=== PATIENT | male | born 1965 | race Asian ===

== ENCOUNTER 2025-08-15 07:00 | Outpatient (REF) | payer OTHER, SELFPAY ==
--- OUTSIDE RECORDS SUMMARY | 2025-08-15 07:04 | XMS_ITS | Encounter Summary ---
Author Organization [employer] Address [address] [place] [address] 7 [place] [address] Care Team Providers Care Chief Accounting Officer Name Role Phone Unavailable Primary Care Provider Unavailabl e Encounter Details Date Type Department Care Team (Latest Contact Info) Description 02/02/2019 Abstract [facility] CONVERSIONS Dental, Provider, DDS Social History Tobacco Use Types Packs/Day Years Used Date Smoking Tobacco: Never Assessed Sex and Gender Information Value Date Recorded Sex Assigned at Male 08/10/2022 10:24 AM EDT Legal Sex Male 10:24 AM EDT Gender Identity Male 08/10/2022 10:24 AM EDT Sexual Orientation Straight 08/10/2022 10 :24 AM EDT documented as of this encounter Plan of Treatment Not on file documented as of this encounter Visit Diagnoses Not on filedocumented in this encounter
--- OUTSIDE RECORDS SUMMARY | 2025-08-15 07:04 | XMS_ITS | Encounter Summary ---
Author Organization [facility] Address [address] [facility] [address] [place] [address] Phone Care Team Providers Care Rice Drier Name Role Phone German Apple CNP Unavailable Goran Guillen MD Unavailable [phone] German Apple CNP Primary Care Provider [phone] Pretty Hernandez PA-C Unavailable Sebastien Cho MD Unavailable [phone] Encounter Details Date Type Department Care Team (Latest Contact Info) Description 11/30/2019 Transcribe Orders [facility] [place] [address] [place] [address] Lian Godwin PA [address] [place] [address] [phone] Weight loss (Primary Dx); Abdominal pain, unspecified abdominal location Social History Tobacco Use Types Packs/Day Years Used Date Smoking Tobacco: Never Smokeless Tobacco: Never Alcohol Use Standard Drinks/Week Comments Never 0 (1 standard drink = 0.6 oz pur e alcohol) Sex and Gender Information Value Date Recorded Sex Assigned at Male 11/23/2022 9:32 PM EST Legal Sex Male 9:44 PM EDT Gender Identity Male 11/23/2022 9:32 PM EST Sexual Orientation Straight 08/31/2023 12 :57 PM EST 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 Not on file Not on file documented as of this encounter Plan of Treatment Upcoming Encounters Date Type Department Care Team (Latest Contact Info) Description 09/18/2025 Procedure Pass [facility] Endoscopy Admitting Dept Virtual Department [address] [place] [address] 09/18/2025 11:00 AM EST Hospital Encounter [facility] Admitting Dept Virtual Department [address] [place] [address] Geo Dumont MD [address] [address] [email or web address] 09/18/2025 11:00 AM EST - 09/18/2025 11:30 AM EST Surgery [facility] Endoscopy Admitting Dept Virtual Department [address] [place] [address] Geo Dumont MD [address] [address] [email or web address] ESOPHAGOGASTRODUODENOSCOPY 11/13/2025 9:00 AM EST Office Visit [facility] 10 [place] [address] Unknown, Unknown, Elodia Cooper, FARHAN [address] [address] [email or web address] 01/29/2026 8:00 AM EDT Office Visit [facility] [address] [place] [address] German Apple, FARHAN [address] [facility], [address] [place] [address] [email or web address] Scheduled Procedures Name Priority Associated Diagnoses Date/Ti me ESOPHAGOGASTRODUODENOSCOPY 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 Gastroesophageal reflux disease with esophagitis, unspecified whether hemorrhage 09/18/2025 11:00 AM EST COLONOSCOPY 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 Gastroesophageal reflux disease with esophagitis, unspecified whether hemorrhage 09/18/2025 11:00 AM EST documented as of this encounter Results * Creatinine/eGFR (11/30/2019 10:00 AM EST) CREATININE 0.80 0.5 - 1.5 mg/dL [facility] EGFR 100 >59 mL/min/1.7 3m2 [facility] Comment:If patient is black, multiply result by 1.159. Estimated glomerular filtration rate calculated using the CKD-EPI equation. Blood 11/30/2019 10:0 0 AM EST 11/30/2019 10:02 AM EST Lian [facility] BLOOD BKR ORDERABLES Fi nal Result Performing Organization Address [facility] Co de Phone Number [address] [address] * BUN (11/30/2019 10:00 AM EST) BUN 13 6 - 19 mg/dL [facility] Blood 11/30/2019 10:0 0 AM EST 11/30/2019 10:02 AM EST Lian [facility] BLOOD BKR ORDERABLES Fi nal Result Performing Organization Address [facility]/ZIP Co de Phone Number [address] [address] documented in this encounter Visit Diagnoses Diagnosis Weight loss- Primary Loss of weight Abdominal pain, unspecified abdominal location 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 Gastroesophageal reflux disease with esophagitis, unspecified whether hemorrhage documented in this encounter Additional Health Concerns Infection Onset Date Last Indicated Resolved Time CoV-Risk 04/19/2020 04/19/2020 05/03/2020 3:34 AM EDT CoV-Exposed Comment:Recent close contact documented in the COVID-19 PCR/PRO order 10/22/2021 10/24/2021 11/12/2021 1:[address] CoV-Risk 11/24/2022 11/24/2022 12/05/2022 1:22 AM EST documented as of this encounter Care Teams Rice Drier Relationship Specialty Start Date End Date German Apple CNP [address] [place] [address], [address] [place] [address] PCP - General Family Medicine 10/17/19 German Apple CNP [address] [place] [address], [address] [place] [address] Historical LMR Provider 07/29/1712/22 Goran Guillen MD [address] [place] [address], [address] [place] [address] Insurance Assigned Provider Internal Medicine 04/04/19 Pretty Hernandez PA-C [address] [place] [address] Orthopedics & Sports Medicine, [place] [address] Physician Federal District Clerk 01/05/24 01/08/25 Sebastien Cho MD [address] [place] [address] [place] [address] Ophthalmology 01/05/24 documented as of this encounter Additional Source Comments The information contained in this document represents components of the legal health record. It is not the complete legal health record.[facility]
--- OUTSIDE RECORDS SUMMARY | 2025-08-15 07:04 | XMS_ITS | Encounter Summary ---
Author Organization [facility] Address [address] [address] [place] [address] Phone Care Team Providers Care Corrosion Control Technician Name Role Phone German Apple CNP Unavailable Goran Guillen MD Unavailable [phone] German Apple CNP Primary Care Provider [phone] Pretty Hernandez PA-C Unavailable Sebastien Cho MD Unavailable Encounter Details Date Type Department Care Team (Late st Contact Info) Description 10/30/2019 Transcribe Orders Virtual Department 30 [place] [address] Lian Godwin PA [address] [place] [address] Social History Tobacco Use Types Packs/Day Years [...] 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 on file Not on file documented as of this encounter Plan of Treatment Upcoming Encounters Date Type Department Care Team (Latest Contact Info) Description 09/18/2025 Procedure Pass [facility] Endoscopy Admitting Dept Virtual Department [address] [place] [address] 09/18/2025 11:00 AM EST Hospital Encounter [facility] Endoscopy Admitting Dept Virtual Department [address] [place] [address] Geo Dumont MD [address] [address] [email or web address] 09/18/2025 11:00 AM EST - 09/18/2025 11:30 AM EST Surgery [facility] Endoscopy Admitting Dept Virtual Department [address] [place] [address] Geo Dumont MD [address] [address] [email or web address] ESOPHAGOGASTRODUODENOSCOPY 11/13/2025 9:00 AM EST Office Visit [facility] 10 [place] [address] Unknown, Unknown, Elodia Cooper, FARHAN [address] [place] [address] [email or web address] 01/29/2026 8:00 AM EDT Office Visit [facility] [address] [place] [address] German Apple, FARHAN [address] [facility], [address] [place] [address] [email or web address] Scheduled Procedures Name Priority Associated Diagnoses Date/Ti me ESOPHAGOGASTRODUODENOSCOPY 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 Gastroesophageal reflux disease with esophagitis, unspecified whether hemorrhage 09/18/2025 11:00 AM EST COLONOSCOPY 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 Gastroesophageal reflux disease with esophagitis, unspecified whether hemorrhage 09/18/2025 11:00 AM EST documented as of this encounter Visit Diagnoses Not on filedocumented in this encounter Additional Health Concerns Infection Onset Date Last Indicated Resolved Time CoV-Risk 04/19/2020 04/19/2020 05/03/2020 3:34 AM EDT CoV-Exposed Comment:Recent close contact documented in the COVID-19 PCR/PRO order 10/22/2021 10/24/2021 11/12/2021 1:[address] CoV-Risk 11/24/2022 11/24/2022 12/05/2022 1:22 AM EST documented as of this encounter Care Teams Corrosion Control Technician Relationship Specialty Start Date End Date German Apple CNP [address] [place] [address], [address] [place] [address] PCP - General Family Medicine 10/17/19 German Apple CNP [address] [place] [address], [address] [place] [address] Historical LMR Provider 07/29/1712/22 Goran Guillen MD [address] [place] [address], [address] [place] [address] Insurance Assigned Provider Internal Medicine 04/04/19 Pretty Hernandez PA-C [address] [place] [address] Orthopedics & Sports Medicine, [place], [place] [id number] Physician Shelter Supervisor 01/05/24 01/08/25 Sebastien Cho MD [address] [place] [address] Ophthalmology 01/05/24 documented as of this encounter Additional Source Comments The information contained in this document represents components of the legal health record. It is not the complete legal health record.[facility]
--- OUTSIDE RECORDS SUMMARY | 2025-08-15 07:04 | XMS_ITS | Encounter Summary ---
Author Organization [facility] Address [address] [facility] [address] [place] [address] Phone Care Team Providers Care Sidewalk Repairer Name Role Phone German Apple CNP Unavailable Goran Guillen MD Unavailable [phone] German Apple CNP Primary Care Provider [phone] Pretty Hernandez PA-C Unavailable [phone] Sebastien Cho MD Unavailable [phone] Encounter Details Date Type Department Care Team (Latest Contact Info) Description 11/02/2019 Transcribe Orders Virtual Department 30 [place] [address] Lian Godwin PA [address] [place] [address] Generalized abdominal pain (Primary Dx); Abnormal weight loss Social History Tobacco Use Types Packs/Day Years [...] 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 Not on file documented as of this encounter Plan of Treatment Upcoming Encounters Date Type Department Care Team (Latest Contact Info) Description 09/18/2025 Procedure Pass [facility] Endoscopy Admitting Dept Virtual Department [address] [place] [address] 09/18/2025 11:00 AM EST Hospital Encounter [facility] Endoscopy Admitting Dept Virtual Department [address] [place] [address] Geo Dumont MD [address] [address] [email or web address] 09/18/2025 11:00 AM EST - 09/18/2025 11:30 AM EST Surgery [facility] Endoscopy Admitting Dept Virtual Department [address] [place] [address] Geo Dumont MD [address] [place] [address] [email or web address] ESOPHAGOGASTRODUODENOSCOPY 11/13/2025 9:00 AM EST Office Visit [facility] [address] [place] [address] Unknown, Unknown, Elodia Cooper, FARHAN [address] [place] [address] [email or web address] 01/29/2026 8:00 AM EDT Office Visit [facility] [address] [place] [address] German Apple, FARHAN [address] [facility], [address] [place] [address] [email or web address] Scheduled Procedures Name Priority Associated Diagnoses Date/Ti me ESOPHAGOGASTRODUODENOSCOPY 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 Gastroesophageal reflux disease with esophagitis, unspecified whether hemorrhage 09/18/2025 11:00 AM EST COLONOSCOPY 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 Gastroesophageal reflux disease with esophagitis, unspecified whether hemorrhage 09/18/2025 11:00 AM EST documented as of this encounter Visit Diagnoses Diagnosis Generalized abdominal pain- Primary Abdominal pain, generalized Abnormal weight loss Loss of weight 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 Gastroesophageal reflux disease [...] documented as of this encounter Care Teams Sidewalk Repairer Relationship Specialty Start Date End Date German Apple CNP [address] [place] [address] PCP - General Family Medicine 10/17/19 German Apple CNP [address] [place] [address], [address] [address] Historical LMR Provider 07/29/1712/22 Goran Guillen MD [address] [place] [address], [address] [address] Insurance Assigned Provider Internal Medicine 04/04/19 Pretty Hernandez PA-C [address] [place] [address] Orthopedics & Sports Medicine, [place] [address] Physician Manager Of Data 01/05/24 01/08/25 Sebastien Cho MD [address] [place] [address] Ophthalmology 01/05/24 documented as of this encounter Additional Source Comments The information contained in this document represents components of the legal health record. It is not the complete legal health record.[facility]
--- OUTSIDE RECORDS SUMMARY | 2025-08-15 07:04 | XMS_ITS | Encounter Summary ---
Author Organization [facility] Address [address] [facility] [address] [place] [address] Phone Care Team Providers Care Human Resources Compensation Analyst Name Role Phone German Apple CNP Unavailable German Apple CNP Primary Care Provider [phone] Goran Guillen MD Unavailable [phone] German Apple CNP Primary Care Provider [phone] Pretty Hernandez PA-C Unavailable [phone] Sebastien Cho MD Unavailable [phone] Encounter Details Date Type Department Care Team (Latest Contact Info) Description 06/20/2019 Transcribe Orders [facility] Phleb [place] [address] [place], [place] [phone] Mali Lopez, ELECTRIC BATH ATTENDANT 10 [place], [place] [phone] Family history of colon cancer (Primary Dx); Bloating; Loss of weight; Early satiety Social History Tobacco Use Types Packs/Day Years Used Date Smoking Tobacco: Never Smokeless Tobacco: Never Sex and Gender Information Value Date Recorded Sex Assigned at Male 11/23/2022 9:32 PM EST Legal Sex Male 9:44 PM EDT Gender Identity Male 11/23/2022 9:32 PM EST Sexual Orientation Straight 08/31/2023 12 :57 PM EST 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 on file Not on file documented as of this encounter Plan of Treatment Upcoming Encounters Date Type Department Care Team (Latest Contact Info) Description 09/18/2025 Procedure Pass [facility] Endoscopy Admitting Dept Virtual Department [address] [place] [address] 09/18/2025 11:00 AM EST Hospital Encounter [facility] Endoscopy Admitting Dept Virtual Department 30 [place] [address] Geo Dumont MD [address] [address] [email or web address] 09/18/2025 11:00 AM EST - 09/18/2025 11:30 AM EST Surgery [facility] Endoscopy Admitting Dept Virtual Department [address] [place] [address] Geo Dumont MD [address] [address] [email or web address] ESOPHAGOGASTRODUODENOSCOPY 11/13/2025 9:00 AM EST Office Visit [facility] [address] [place] [address] Unknown, Unknown, Elodia Cooper, FARHAN [address] [address] [email or web address] 01/29/2026 8:00 AM EDT Office Visit [facility] [address] [place] [address] German Apple, FARHAN 22 [facility], [address] [place] [address] [email or web address] Scheduled Procedures Name Priority Associated Diagnoses Date/Ti me ESOPHAGOGASTRODUODENOSCOPY 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 Gastroesophageal reflux disease with esophagitis, unspecified whether hemorrhage 09/18/2025 11:00 AM EST COLONOSCOPY 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 Gastroesophageal reflux disease with esophagitis, unspecified whether hemorrhage 09/18/2025 11:00 AM EST documented as of this encounter Results * (ABNORMAL) Comprehensive metabolic panel (06/20/2019 4:18 PM EDT) SODIUM 142 133 - 146 mmol/L [facility] POTASSIUM 3.9 3.3 - 5.1 mmol/L [facility] CHLORIDE 102 96 - 108 mmol/L [facility] CO2 27 21 - 35 mmol/L [facility] BUN 18 6 - 19 mg/dL [facility] CREATININE 0.60 0.5 - 1.5 mg/dL [facility] GLUCOSE 115(H) 70 - 99 mg/dL [facility] ALBUMIN 4.9(H) 3.9 - 4.8 g/dL [facility] TOTAL PROTEIN 7.5 6.5 - 8.0 g/dL [facility] CALCIUM 10.1 8.4 - 10.3 mg/dL [facility] ALKALINE PHOSPHATASE 62 39 - 117 U/L [facility] TOTAL BILIRUBIN 0.5 0.0 - 1.2 mg/dL [facility] AST 29 0 - 37 U/L [facility] ALT 18 0 - 40 U/L [facility] GLOBULIN 2.6 1 - 4.8 g/dL [facility] EGFR 113 >59 mL/min/1.7 3m2 [facility] Comment:If patient is black, multiply result by 1.159. Estimated glomerular filtration rate calculated using the CKD-EPI equation. ANION GAP 17 10 - 20 mmol/L [facility] Blood 06/20/2019 4:18 PM EDT 06/20/2019 4:20 PM EDT us Mali Lopez [facility] LAB BLOOD BKR ORDERABLES F inal Result [facility] [address] [place] [address] * (ABNORMAL) CBC and differential (06/20/2019 4:18 PM EDT) WBC 6.37 3.40 - 11.20 K/uL [facility] RBC 6.31(H) 4.50 - 5.50 M/uL [facility] HGB 12.9(L) 13.0 - 17.0 g/dL [facility] HCT 40.8 40.0 - 51.0 % [facility] PLT 314 130 - 400 K/uL [facility] MCV 64.7(L) 79.0 - 98.0 fL [facility] MCH 20.4(L) 27.0 - 34.8 pg [facility] MCHC 31.6 31.5 - 36.0 g/dL [facility] RDW 18.0(H) 10.8 - 14.6 % [facility] MPV 10.4 9.4 - 12.4 fl [facility] NRBC 0.00 0.00 /100 WBCs [facility] ABSOLUTE NRBC 0.00 0.00 K/uL [facility] DIFF METHOD Auto [facility] NEUTS 57.4 45.30 - 77.70 % [facility] LYMPHS 31.9 12.30 - 39.70 % [facility] MONOS 7.2 4.10 - 12.80 % [facility] EOS 3.0 0 - 7.2 % [facility] BASOS 0.3 0 - 2.80 % [facility] Granulocytes, immature (%) 0.2 0.0 - 0.9 % [facility] ABSOLUTE NEUTS 3.66 1.40 - 7.70 K/uL [facility] ABSOLUTE LYMPHS 2.03 0.60 - 3.20 K/uL [facility] ABSOLUTE MONOS 0.46 0.11 - 0.59 K/uL [facility] ABSOLUTE EOS 0.19 0.01 - 0.50 K/uL [facility] ABSOLUTE BASOS 0.02 0.00 - 0.08 K/uL [facility] Granulocytes, immature 0.01 0.00 - 0.05 K/uL [facility] Blood 06/20/2019 4:18 PM EDT 06/20/2019 4:20 PM EDT Mali Lopez [facility] LAB BLOOD BKR ORDERABLES F inal Result Performing Organization Address City/[facility]/ZIP Co de Phone Number [address] [address] * Immunoglobulin A (06/20/2019 4:18 PM EDT) IgA 230 70 - 400 mg/dL [facility] Blood 06/20/2019 4:18 PM EDT 06/20/2019 4:20 PM EDT Mali Lopez [facility] LAB BLOOD BKR ORDERABLES F inal Result Performing Organization Address [facility] Co de Phone Number [address] [address] * Tissue transglutaminase IgA (06/20/2019 4:18 PM EDT) TTG IGA ANTIBODY <1.2 <4.0 (Negative) U/mL [facility] Blood 06/20/2019 4:18 PM EDT 06/20/2019 4:19 PM EDT Mali Lopez [facility] LAB BLOOD BKR ORDERABLES F inal Result Performing Organization Address [facility] Co de Phone Number [facility] [address] [place] [address] documented in this encounter Visit Diagnoses Diagnosis Family history of colon cancer- Primary Family history of malignant neoplasm of gastrointestinal tract Bloating Flatulence, eructation, and gas pain Loss of weight Early satiety 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 Gastroesophageal reflux disease [...] documented as of this encounter Care Teams Human Resources Compensation Analyst Relationship Specialty Start Date End Date JoanneGerman polancoFARHAN [address] [facility], [address] [place] [address] PCP - General Family Medicine 10/05/18 10/16/19 German Apple CNP [address] [facility], [address] [place] [address] PCP - General Family Medicine 10/17/19 German Apple CNP [address] [place] [address], [address] [place] [address] Historical LMR Provider 07/29/1712/22 Goran Guillen MD [address] [place] [address], [address] [place] [address] Insurance Assigned Provider Internal Medicine 04/04/19 Pretty Hernandez PA-C [address] [place] [address] Orthopedics & Sports Medicine, [place] [address] Physician Rust Proofer 01/05/24 01/08/25 Sebastien Cho MD [address] [place] [address] Ophthalmology 01/05/24 documented as of this encounter Additional Source Comments The information contained in this document represents components of the legal health record. It is not the complete legal health record.[facility]
--- OUTSIDE RECORDS SUMMARY | 2025-08-15 07:04 | XMS_ITS | Encounter Summary ---
Author Organization [facility] Address [address] [employer] [facility] [address] [place] [address] Phone Care Team Providers Care Retirement Officer Name Role Phone Goran Guillen MD Unavailable [phone] German Apple CNP Primary Care Provider Sebastien Cho MD Unavailable [phone] Encounter Details Date Type Department Care Team (Latest Contact Info) Description 06/18/2025 Transcribe Orders [facility] 2nd [place], [place] [id number] Elodia Godoy NP 10 [place], [place] [id number] Cough, unspecified type (Primary Dx); Family history of malignant neoplasm of gastrointestinal tract; Abdominal pain, epigastric; Bloating Social History Tobacco Use Types Packs/Day Years Used Date Smoking Tobacco: Never Smokeless Tobacco: Never Alcohol Use Standard Drinks/Week Comments Never 0 (1 standard drink = 0.6 oz pur e alcohol) Child or Family Care Answer Date Record ed Do you have problems with on e of the following making it difficult for you to work, study, or receive health care? No 01/03/2025 Education Answer Date Recorded Are you interested in help w ith more adult education (for example, completing high school, GED, job training, learning the [place]ian language, technical skills, or developing parenting skills)? No 01/03/2025 Are you concerned about learning? Not on file 01/03/2025 No 01/03/2025 Yes 01/03/2025 Food Answer Date Recorded Within the past 6 months we worried whether our food would run out before we got money to buy more. Never True 01/03/2025 Within the past 6 months the food we bought just didn't last and we didn't have enough money to get more. Never True Residential Stability Answer Date Recor ded What is your housing situation today? I have susan sing 01/03/2025 How many times have you move d in the past 12 months? Zero (I did not move) 01/03/2025 Paying for Meds Answer Date Recorded Do you have trouble paying for medicines? No 01/03/2025 Paying Utility Bills Answer Date Record ed Do you have trouble paying your heating or elect ricity bill? No 01/03/2025 Transportation Answer Date Recorded Has the lack of transportati on kept you from medical appointments or from getting medications? No 01/03/2025 Unemployment Answer Date Recorded Are you currently unemployed or working on a part-time or temporary basis, and looking for work? No 12/28/2022 Digital Access Answer Date Recorded No 01/03/2025 Yes 01/03/2025 Do you have reliable internet access at home? Ye s 01/03/2025 Do you have a device (e.g., phone, tablet, computer) with a working camera? Yes 01/03/2025 Intimate Partner Violence Answer Date R ecorded Are you denied basic needs s uch as food, clothing, or medical care? No 01/03/2025 In the past 12 months have y ou been in a relationship with a person who hurts, threatens, or tries to control you? No 01/03/2025 Are you denied basic needs s uch as food, clothing, or medical care? No 01/03/2025 In the past 12 months have y ou been in a relationship with a person who hurts, threatens, or tries to control you? 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 Not on file Not on file documented as of this encounter Plan of Treatment Upcoming Encounters Date Type Department Care Team (Latest Contact Info) Description 09/18/2025 Procedure Pass [facility] Endoscopy Admitting Dept Virtual Department [address] [place] [address] 09/18/2025 11:00 AM EST Hospital Encounter [facility] Admitting Dept Virtual Department [address] [place] [address] Geo Dumont MD [address] [address] [email or web address] 09/18/2025 11:00 AM EST - 09/18/2025 11:30 AM EST Surgery [facility] Endoscopy Admitting Dept Virtual Department [address] [place] [address] Geo Dumont MD [address] [place] [address] [email or web address] ESOPHAGOGASTRODUODENOSCOPY 11/13/2025 9:00 AM EST Office Visit [facility] [address] [place] [address] Unknown, Unknown, Elodia Cooper, FARHAN [address] [address] [email or web address] 01/29/2026 8:00 AM EDT Office Visit [facility] [address] [place] [address] German Apple, FARHAN [address] [facility], [address] [place] [address] [email or web address] Scheduled Procedures Name Priority Associated Diagnoses Date/Ti me ESOPHAGOGASTRODUODENOSCOPY 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 Gastroesophageal reflux disease with esophagitis, unspecified whether hemorrhage 09/18/2025 11:00 AM EST COLONOSCOPY 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 Gastroesophageal reflux disease with esophagitis, unspecified whether hemorrhage 09/18/2025 11:00 AM EST documented as of this encounter Results * Vitamin B12 (06/18/2025 10:26 AM EDT) VITAMIN B12 525 232 - 1,245 pg/mL [facility] Blood 06/18/2025 10:2 6 AM EDT 06/18/2025 10:28 AM EDT Elodia Godoy NP LAB BLOOD BKR ORDERABLES Final Result Performing Organization Address [facility] Co de Phone Number [address] [address] * Iron and iron binding capacity (06/18/2025 10:26 AM EDT) IRON 71 45 - 160 ug/dL [facility] IRON BINDING CAPACITY 306 228 - 428 ug/dL [facility] TRANSFERRIN SATURAT. 23 20 - 55 % [facility] Blood 06/18/2025 10:2 6 AM EDT 06/18/2025 10:28 AM EDT Elodia Godoy NP LAB BLOOD BKR ORDERABLES Final Result Performing Organization Address City/[facility]/ZIP Co de Phone Number [address] [address] * (ABNORMAL) CBC (06/18/2025 10:26 AM EDT) WBC 5.65 4.00 - 11.00 K/uL [facility] RBC 6.79(H) 4.50 - 5.90 M/uL [facility] HGB 13.7 13.5 - 17.5 g/dL [facility] HCT 44.6 41.0 - 53.0 % [facility] PLT 312 150 - 450 K/uL [facility] MCV 65.7(L) 80.0 - 100.0 fL [facility] MCH 20.2(L) 27.0 - 31.0 pg [facility] MCHC 30.7(L) 32.0 - 36.0 g/dL [facility] RDW 19.1(H) 11.5 - 14.5 % [facility] MPV 10.1 8.4 - 12.0 fL [facility] NRBC 0.00 0.00 /100 WBCs [facility] ABSOLUTE NRBC 0.00 0.00 K/uL [facility] Blood 06/18/2025 10:2 6 AM EDT 06/18/2025 10:28 AM EDT Elodia Godoy REVENUE INVESTIGATOR LAB BLOOD BKR ORDERABLES Final Result Performing Organization Address City/State/[facility] Co de Phone Number [facility] [address] [place] [address] documented in this encounter Visit Diagnoses Diagnosis Cough, unspecified type- Primary Family history of malignant neoplasm of gastrointestinal tract Abdominal pain, epigastric Bloating Flatulence, eructation, and gas pain 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 Gastroesophageal reflux disease with esophagitis, unspecified whether hemorrhage documented in this encounter Additional Health Concerns Assessment Noted Time PHQ-2 Depression Total Score: 0 01/04/20 25 11:32 AM EDT documented as of this encounter Care Teams Retirement Officer Relationship Specialty Start Date End Date German Apple CNP [address] [place] [address], [address] [place] [address] [email or web address] PCP - General Family Medicine 10/17/19 Goran Guillen MD [address] [place] [address], [address] [place] [address] [email or web address] Insurance Assigned Provider Internal Medicine 04/04/19 Sebastien Cho MD [address] [place] [address] Ophthalmology 01/05/24 documented as of this encounter Additional Source Comments The information contained in this document represents components of the legal health record. It is not the complete legal health record.[facility]
--- OUTSIDE RECORDS SUMMARY | 2025-08-15 07:04 | XMS_ITS | Encounter Summary ---
Author Organization [facility] Address [address] [facility] [address] [place] [address] Phone Care Team Providers Care Grounds Caretaker Name Role Phone Manuel Sauer MD Unavailable German Apple CNP Unavailable German Apple CNP Primary Care Provider [phone] Goran Guillen MD Unavailable [phone] German Apple CNP Primary Care Provider [phone] Pretty Hernandez PA-C Unavailable Sebastien Cho MD Unavailable [phone] Encounter Details Date Type Department Care Team (Late st Contact Info) Description 04/04/2019 EpicOnHand Encounter [facility] at [address] [address] Jace Anaya DO 30 [place] [address] [email or web address] Social History Tobacco Use Types Packs/Day Years Used Date Smoking Tobacco: Never Smokeless Tobacco: Never Sex and Gender Information Value Date Recorded Sex Assigned at Male 11/23/2022 9:32 PM EST Legal Sex Male 9:44 PM EDT Gender Identity Male 11/23/2022 9:32 PM EST Sexual Orientation Straight 08/31/2023 12 :57 PM EST documented as of this encounter Plan of Treatment Upcoming Encounters Date Type Department Care Team (Latest Contact Info) Description 09/18/2025 Procedure Pass [facility] Endoscopy Admitting Dept Virtual Department [address] [place] [address] 09/18/2025 11:00 AM EST Hospital Encounter [facility] Endoscopy Admitting Dept Virtual Department [address] [place] [address] Geo Dumont MD [address] [address] [email or web address] 09/18/2025 11:00 AM EST - 09/18/2025 11:30 AM EST Surgery [facility] Endoscopy Admitting Dept Virtual Department [address] [place] [address] Geo Dumont MD [address] [address] [email or web address] ESOPHAGOGASTRODUODENOSCOPY 11/13/2025 9:00 AM EST Office Visit [facility] [address] [place] [address] Unknown, Unknown, Elodia Cooper, FARHAN [address] [address] [email or web address] 01/29/2026 8:00 AM EDT Office Visit [facility] [address] [place] [address] German Apple, FARHAN [address] [facility], [address] [place] [address] [email or web address] Scheduled Procedures Name Priority Associated [...] documented as of this encounter Care Teams Grounds Caretaker Relationship Specialty Start Date End Date German Apple CNP [address] [place] [address], [address] [place] [address] [email or web address] PCP - General Family Medicine 10/05/18 10/16/19 German Apple CNP [address] [place] [address], [address] [address] PCP - General Family Medicine 10/17/19 Manuel Sauer MD [address] [place] [address], [address] [place] [address] Historical LMR Provider 07/29/17 9 German Apple CNP [address] [place] [address], [address] [address] Historical LMR Provider 07/29/1712/22 Goran Guillen MD [address] [place], [place] [address] [place] [address] [email or web address] Insurance Assigned Provider Internal Medicine 04/04/19 Pretty Hernandez PA-C [address] [place] [address] Orthopedics & Sports Medicine, [place] [address] [email or web address] Physician Baking Factory Worker 01/05/24 01/08/25 Sebastien Cho MD [address] [place] [address] [place] [address] Ophthalmology 01/05/24 documented as of this encounter Additional Source Comments The information contained in this document represents components of the legal health record. It is not the complete legal health record.[facility]
--- OUTSIDE RECORDS SUMMARY | 2025-08-15 07:04 | XMS_ITS | Encounter Summary ---
Author Organization [facility] Address [address] [facility] [address] [place] [address] Phone Care Team Providers Care Development Intern Name Role Phone German Apple CNP Unavailable [phone] Goran Guillen MD Unavailable [phone] German Apple CNP Primary Care Provider [phone] Pretty Hernandez PA-C Unavailable Sebastien Cho MD Unavailable [phone] Encounter Details Date Type Department Care Team (Late st Contact Info) Description 11/04/2021 Procedure Pass [facility], Ct Scan - [address] [address] Social History Tobacco Use Types Packs/Day Years [...] 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 on file Not on file documented as of this encounter Plan of Treatment Upcoming Encounters Date Type Department Care Team (Latest Contact Info) Description 09/18/2025 Procedure Pass [facility] Endoscopy Admitting Dept Virtual Department [address] [place] [address] 09/18/2025 11:00 AM EST Hospital Encounter [facility] Endoscopy Admitting Dept Virtual Department [address] [place] [address] Geo Dumont MD [address] [address] [email or web address] 09/18/2025 11:00 AM EST - 09/18/2025 11:30 AM EST Surgery [facility] Endoscopy Admitting Dept Virtual Department [address] [place] [address] Geo Dumont MD [address] [address] [email or web address] ESOPHAGOGASTRODUODENOSCOPY 11/13/2025 9:00 AM EST Office Visit [facility] 10 [place] [address] Unknown, Unknown, Elodia Cooper, CRATER AND PACKER [address] [address] [email or web address] 01/29/2026 8:00 AM EDT Office Visit [facility] [address] [address] German Apple, FARHAN [address] [facility], [address] [place] [address] [email or web address] Scheduled Procedures Name Priority Associated Diagnoses Date/Ti [...] Infection Onset Date Last Indicated Resolved Time CoV-Exposed Comment:Recent close contact documented in the COVID-19 PCR/PRO order 10/22/2021 10/24/2021 11/12/2021 1:[address] CoV-Risk 11/24/2022 11/24/2022 12/05/2022 1:22 AM EST Assessment Noted Time PHQ-2 Depression Total Score: 0 12/24/19 22 10:02 AM EDT documented as of this encounter Care Teams Development Intern Relationship Specialty Start Date End Date German Apple CNP [address] [place] [address], [address] [place] [address] PCP - General Family Medicine 10/17/19 German Apple CNP [address] [place] [address], [address] [place] [address] [email or web address] Historical LMR Provider 07/29/1712/22 Goran Guillen MD [address] [place] [address], [address] [place] [address] Insurance Assigned Provider Internal Medicine 04/04/19 Pretty Hernandez PA-C [address] [place] [address] Orthopedics & Sports Medicine, [place] [address] Physician Reaming Machine Operator 01/05/24 01/08/25 Sebastien Cho MD [address] [place] [address] [place] [address] Ophthalmology 01/05/24 documented as of this encounter Additional Source Comments The information contained in this document represents components of the legal health record. It is not the complete legal health record.[facility]
--- OUTSIDE RECORDS SUMMARY | 2025-08-15 07:04 | XMS_ITS | Clinical Summary ---
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 screeningpurposes. MOLLY SANDOVAL MD 07/25/2019 12:12:02 PM This report has been signed electronically. Number of Addenda: 0 Note Initiated On: 07/25/2019 11:40 AM Procedure Code(s): --- Professional --- 67697, Colonoscopy, flexible; diagnostic, including collection of specimen(s) by brushing or washing, when performed (separateprocedure) --- Technical --- 13037, Colonoscopy, flexible; diagnostic, including collection of specimen(s) by brushing or washing, when performed (separateprocedure) Diagnosis Code(s): --- Professional --- R10.84, Generalized abdominal pain Z80.0, Family history of malignant neoplasm of digestive organs --- Technical --- R10.84, Generalized abdominal pain Z80.0, Family history of malignant neoplasm of digestive organs CPT copyright 2018 [employer]. All rights reserved. The codes documented in this report are preliminary and upon recruiting associate reviewmay be revised to meet current compliance requirements. [address] [place] [address] Molly Christiansen MD GI PROCEDURE ORDERABLES Fi nal Result from Last 3 Months or Most Recently Relevant to Health Maintenance Insurance [facility] NON NSPG PCP [facility] WELLSENSE NON NSPG PCP [facility]LL[employer] NON NSPG PCP S[facility]LL[facility] NON NSPG [facility] S[facility] CONNE[facility]CARE [facility] NON NSPG PCP [facility] CONNECTORCARE [facility] NON NSPG PCP S[facility] CONNECTORCARE [facility] NON NSPG PCP [facility] NON NSPG PCP S[facility] Care Teams [employer] Intermediary Relationship Specialty Start Date End Date German Apple CNP [address] [place], [place] [id number] [place] [address] [email or web address] PCP - General Family Medicine 10/17/19 Goran Guillen MD [address] [place] [address], [address] [place] [address] [email or web address] Insurance Assigned Provider Internal Medicine 04/04/19 Sebastien Cho MD [address] [place] [address] [place] [address] Ophthalmology 01/05/24 Additional Source Comments The information contained in this document represents components of the legal health record. It is not the complete legal health record.[facility]
--- OUTSIDE RECORDS SUMMARY | 2025-08-15 07:04 | XMS_ITS | Encounter Summary ---
Author Organization [employer] Address [address] [place] [address] 7 [place] [address] Care Team Providers Care Scratch Brusher Name Role Phone Unavailable Primary Care Provider Unavailabl e Encounter Details Date Type Department Care Team (Latest Contact Info) Description 11/25/2021 Abstract [facility] CONVERSIONS Dental, Provider, DDS Social History Tobacco [...]
--- OUTSIDE RECORDS SUMMARY | 2025-08-15 07:04 | XMS_ITS | Encounter Summary ---
Author Organization [facility] Address [address] [facility] [address] [place] [address] Phone Care Team Providers Care Explosive Ordnance Handler Name Role Phone German Apple CNP Unavailable Goran Guillen MD Unavailable [phone] German Apple CNP Primary Care Provider [phone] Pretty Hernandez PA-C Unavailable Sebastien Cho MD Unavailable Reason for Referral * MRI/CAT Scan - Closed Specialty Diagnoses / Procedures Referred By Contac t Referred To Contact Radiology Diagnoses Generalized abdominal pain Abnormal weight loss Abnormal screening computed tomography (CT) of lung Procedures CT Chest CT Chest Lian Godwin PA Phone: tel: fax: Referral ID Status Reason Start Date Expiration Date Visits Re quested Visits Authorized [id number] Closed 10/31/2019 12/30/2019 1 1 * MRI/CAT Scan - Closed Specialty Diagnoses / Procedures Referred By Contac t Referred To Contact Radiology Diagnoses Generalized abdominal pain Abnormal weight loss Abnormal screening computed tomography (CT) of lung Procedures CT Abdomen/Pelvis CT Abdomen/Pelvis Lian Godwni PA Phone: tel: fax: Referral ID Status Reason Start Date Expiration Date Visits Re quested Visits Authorized [id number] Closed 10/27/2019 12/26/2019 1 1 Encounter Details Date Type Department Care Team (Late st Contact Info) Description 11/02/2019 Ancillary Orders Virtual Department [address] [place] [address] Lian Godwin PA [address] [place] [address] Generalized abdominal pain; Abnormal weight loss; Abnormal screening computed tomography (CT) of lung Social History Tobacco Use Types Packs/Day Years [...] 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 file Not on file documented as of this encounter Plan of Treatment Upcoming Encounters Date Type Department Care Team (Latest Contact Info) Description 09/18/2025 Procedure Pass [facility] Admitting Dept Virtual Department [address] [place] [address] 09/18/2025 11:00 AM EST Hospital Encounter [facility] Virtual Department [address] [place] [address] Geo Dumont MD [address] [address] [email or web address] 09/18/2025 11:00 AM EST - 09/18/2025 11:30 AM EST Surgery [facility] Admitting Dept Virtual Department [address] [place] [address] Geo Dumont MD [address] [address] [email or web address] ESOPHAGOGASTRODUODENOSCOPY 11/13/2025 9:00 AM EST Office Visit [facility] [address] [place] [address] Unknown, Unknown, Elodia Cooper, LABORATORY COORDINATOR [address] [address] [email or web address] 01/29/2026 8:00 AM EDT Office Visit [address] [place] [address] German Apple, LABORATORY COORDINATOR [address] [facility], [address] [place] [address] [email or web address] Scheduled Procedures Name Priority Associated Diagnoses Date/Ti me ESOPHAGOGASTRODUODENOSCOPY 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 Gastroesophageal reflux disease with esophagitis, unspecified whether hemorrhage 09/18/2025 11:00 AM EST COLONOSCOPY 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 Gastroesophageal reflux disease with esophagitis, unspecified whether hemorrhage 09/18/2025 11:00 AM EST documented as of this encounter Results * CT CHEST WITH CONTRAST (12/05/2019 1:54 PM EST) Anatomical Region Laterality Modality Chest Computed Tomogra phy 12/05/2019 2:50 PM EST Impressions 12/05/2019 3:36 PM EST 1. No acute process in the chest, abdomen or pelvis. 2. Unchanged appearance of pulmonary nodules as compared to 11/01/2018. 3. Right renal cyst. POS: [id number] Narrative 12/05/2019 3:[address] CHEST WITH CONTRAST, CT ABDOMEN/PELVIS WITH CONTRAST CLINICAL HISTORY: *Abdominal pain, weight loss. RE: WEIGHT LOSS >10%, ABNORMAL CT LUNG, ABDOMINAL PAIN. TECHNIQUE: Spiral CT through the chest, abdomen and pelvis with intravenous contrast, formatted in 3 planes. The study was performed with oral contrast. Weight-based protocol using automatic tube modulation was used to optimize exposure parameters. CTDIvol Body: 11.2 mGy, DLP Body: 450.3 mGy*cm. COMPARISONS: Chest x-ray dated 10/02/2019, chest CT dated 11/01/2018 and renal ultrasound dated 03/11/2017. FINDINGS: ARBORER VIEW FINDINGS, LINES AND TUBES: None. TRACHEA and MAIN BRONCHI: Patent without evidence of tracheal or endobronchial lesion. LUNGS AND PLEURA: Unchanged appearance of a 3 mm nodule in the right middle lobe (image 182 of series 5), a 3 mm right lower lobe pulmonary nodule (image 175 of series 5 and a triangular-shaped nodule in the left lower lobe measuring 5 x 7 mm (image 218 of series 5). No new pulmonary nodules. No pneumothorax or pleural effusion. THORACIC AORTA: No evidence of aortic aneurysm. The ascending aorta measures 3.8 cm the level the right main pulmonary artery. MEDIASTINUM and BRANDT: No hematoma, mass or adenopathy. Normal heart size. No pericardial effusion. No esophageal abnormalities. DIAPHRAGM: Intact. LIVER: Normal. GALLBLADDER: No CT evidence of gallbladder pathology. BILE DUCTS: No biliary ductal dilation. SPLEEN: Normal in size and attenuation. PANCREAS: Normal. ADRENAL GLANDS: Normal. KIDNEYS AND URETERS: No calculi or hydronephrosis. The 7 mm cyst is seen in the upper pole of the right kidney. A 3 mm hypodensity in the midpole of the right kidney is too small to characterize. ABDOMINAL BLOOD VESSELS: The vascular structures appear normal. No evidence of venous thrombosis. ABDOMINAL LYMPH NODES: No pathologically enlarged lymph nodes. STOMACH, SMALL BOWEL AND LARGE BOWEL: Normal. APPENDIX: Normal. No inflammatory changes. PERITONEUM, OMENTUM AND MESENTERY: No ascites or pneumoperitoneum. No omental or mesenteric lesions. REPRODUCTIVE ORGANS: Unremarkable. BLADDER: Normal. THORACIC, ABDOMINAL AND PELVIC WALL: Unremarkable. BONES: No acute abnormality. Multiple degenerative change is seen in the spine. Procedure Note Kaitlyn Huddleston MD - 12/05/2019 CT CHEST WITH CONTRAST, CT ABDOMEN/PELVIS WITH CONTRAST CLINICAL HISTORY: *Abdominal pain, weight loss. RE: WEIGHT LOSS >10%,ABNORMAL CT LUNG, ABDOMINAL PAIN. TECHNIQUE: Spiral CT through the chest, abdomen and pelvis withintravenous contrast, formatted in 3 planes. The study was performed withoral contrast. Weight-based protocol using automatic tube modulation wasused to optimize exposure parameters. CTDIvol Body: 11.2 mGy, DLP Body:450.3 mGy*cm. COMPARISONS: Chest x-ray dated 10/02/2019, chest CT dated 11/01/2018 andrenal ultrasound dated 03/11/2017. FINDINGS: ARBORER VIEW FINDINGS, LINES AND TUBES: None. TRACHEA and MAIN BRONCHI: Patent without evidence of tracheal orendobronchial lesion. LUNGS AND PLEURA: Unchanged appearance of a 3 mm nodule in the rightmiddle lobe (image 182 of series 5), a 3 mm right lower lobe pulmonarynodule (image 175 of series 5 and a triangular-shaped nodule in the leftlower lobe measuring 5 x 7 mm (image 218 of series 5). No new pulmonarynodules. No pneumothorax or pleural effusion. THORACIC AORTA: No evidence of aortic aneurysm. The ascending aortameasures 3.8 cm the level the right main pulmonary artery. MEDIASTINUM and BRANDT: No hematoma, mass or adenopathy. Normal heart size.No pericardial effusion. No esophageal abnormalities. DIAPHRAGM: Intact. LIVER: Normal. GALLBLADDER: No CT evidence of gallbladder pathology. BILE DUCTS: No biliary ductal dilation. SPLEEN: Normal in size and attenuation. PANCREAS: Normal. ADRENAL GLANDS: Normal. KIDNEYS AND URETERS: No calculi or hydronephrosis. The 7 mm cyst is seenin the upper pole of the right kidney. A 3 mm hypodensity in the midpoleof the right kidney is too small to characterize. ABDOMINAL BLOOD VESSELS: The vascular structures appear normal. Noevidence of venous thrombosis. ABDOMINAL LYMPH NODES: No pathologically enlarged lymph nodes. STOMACH, SMALL BOWEL AND LARGE BOWEL: Normal. APPENDIX: Normal. No inflammatory changes. PERITONEUM, OMENTUM AND MESENTERY: No ascites or pneumoperitoneum. Noomental or mesenteric lesions. REPRODUCTIVE ORGANS: Unremarkable. BLADDER: Normal. THORACIC, ABDOMINAL AND PELVIC WALL: Unremarkable. BONES: No acute abnormality. Multiple degenerative change is seen in thespine. IMPRESSION: 1. No acute process in the chest, abdomen or pelvis. 2. Unchanged appearance of pulmonary nodules as compared to 11/01/2018. 3. Right renal cyst. POS: [id number] Lian Sancho SANTACRUZ IMG CT CHEST Final Resul t * CT ABDOMEN/PELVIS WITH CONTRAST (12/05/2019 1:54 PM EST) Anatomical Region Laterality Modality Abdomen, Pelvis Computed Tomogra phy 12/05/2019 2:50 PM EST Impressions 12/05/2019 3:36 PM EST 1. No acute process in the chest, abdomen or pelvis. 2. Unchanged appearance of pulmonary nodules as compared to 11/01/2018. 3. Right renal cyst. POS: [id number] Narrative 12/05/2019 3:[address] CHEST WITH CONTRAST, CT ABDOMEN/PELVIS WITH CONTRAST CLINICAL HISTORY: *Abdominal pain, weight loss. RE: WEIGHT LOSS >10%, ABNORMAL CT LUNG, ABDOMINAL PAIN. TECHNIQUE: Spiral CT through the chest, abdomen and pelvis with intravenous contrast, formatted in 3 planes. The study was performed with oral contrast. Weight-based protocol using automatic tube modulation was used to optimize exposure parameters. CTDIvol Body: 11.2 mGy, DLP Body: 450.3 mGy*cm. COMPARISONS: Chest x-ray dated 10/02/2019, chest CT dated 11/01/2018 and renal ultrasound dated 03/11/2017. FINDINGS: ARBORER VIEW FINDINGS, LINES AND TUBES: None. TRACHEA and MAIN BRONCHI: Patent without evidence of tracheal or endobronchial lesion. LUNGS AND PLEURA: Unchanged appearance of a 3 mm nodule in the right middle lobe (image 182 of series 5), a 3 mm right lower lobe pulmonary nodule (image 175 of series 5 and a triangular-shaped nodule in the left lower lobe measuring 5 x 7 mm (image 218 of series 5). No new pulmonary nodules. No pneumothorax or pleural effusion. THORACIC AORTA: No evidence of aortic aneurysm. The ascending aorta measures 3.8 cm the level the right main pulmonary artery. MEDIASTINUM and BRANDT: No hematoma, mass or adenopathy. Normal heart size. No pericardial effusion. No esophageal abnormalities. DIAPHRAGM: Intact. LIVER: Normal. GALLBLADDER: No CT evidence of gallbladder pathology. BILE DUCTS: No biliary ductal dilation. SPLEEN: Normal in size and attenuation. PANCREAS: Normal. ADRENAL GLANDS: Normal. KIDNEYS AND URETERS: No calculi or hydronephrosis. The 7 mm cyst is seen in the upper pole of the right kidney. A 3 mm hypodensity in the midpole of the right kidney is too small to characterize. ABDOMINAL BLOOD VESSELS: The vascular structures appear normal. No evidence of venous thrombosis. ABDOMINAL LYMPH NODES: No pathologically enlarged lymph nodes. STOMACH, SMALL BOWEL AND LARGE BOWEL: Normal. APPENDIX: Normal. No inflammatory changes. PERITONEUM, OMENTUM AND MESENTERY: No ascites or pneumoperitoneum. No omental or mesenteric lesions. REPRODUCTIVE ORGANS: Unremarkable. BLADDER: Normal. THORACIC, ABDOMINAL AND PELVIC WALL: Unremarkable. BONES: No acute abnormality. Multiple degenerative change is seen in the spine. Procedure Note Kaitlyn Huddleston MD - 12/05/2019 CT CHEST WITH CONTRAST, CT ABDOMEN/PELVIS WITH CONTRAST CLINICAL HISTORY: *Abdominal pain, weight loss. RE: WEIGHT LOSS >10%,ABNORMAL CT LUNG, ABDOMINAL PAIN. TECHNIQUE: Spiral CT through the chest, abdomen and pelvis withintravenous contrast, formatted in 3 planes. The study was performed withoral contrast. Weight-based protocol using automatic tube modulation wasused to optimize exposure parameters. CTDIvol Body: 11.2 mGy, DLP Body:450.3 mGy*cm. COMPARISONS: Chest x-ray dated 10/02/2019, chest CT dated 11/01/2018 andrenal ultrasound dated 03/11/2017. FINDINGS: ARBORER VIEW FINDINGS, LINES AND TUBES: None. TRACHEA and MAIN BRONCHI: Patent without evidence of tracheal orendobronchial lesion. LUNGS AND PLEURA: Unchanged appearance of a 3 mm nodule in the rightmiddle lobe (image 182 of series 5), a 3 mm right lower lobe pulmonarynodule (image 175 of series 5 and a triangular-shaped nodule in the leftlower lobe measuring 5 x 7 mm (image 218 of series 5). No new pulmonarynodules. No pneumothorax or pleural effusion. THORACIC AORTA: No evidence of aortic aneurysm. The ascending aortameasures 3.8 cm the level the right main pulmonary artery. MEDIASTINUM and BRANDT: No hematoma, mass or adenopathy. Normal heart size.No pericardial effusion. No esophageal abnormalities. DIAPHRAGM: Intact. LIVER: Normal. GALLBLADDER: No CT evidence of gallbladder pathology. BILE DUCTS: No biliary ductal dilation. SPLEEN: Normal in size and attenuation. PANCREAS: Normal. ADRENAL GLANDS: Normal. KIDNEYS AND URETERS: No calculi or hydronephrosis. The 7 mm cyst is seenin the upper pole of the right kidney. A 3 mm hypodensity in the midpoleof the right kidney is too small to characterize. ABDOMINAL BLOOD VESSELS: The vascular structures appear normal. Noevidence of venous thrombosis. ABDOMINAL LYMPH NODES: No pathologically enlarged lymph nodes. STOMACH, SMALL BOWEL AND LARGE BOWEL: Normal. APPENDIX: Normal. No inflammatory changes. PERITONEUM, OMENTUM AND MESENTERY: No ascites or pneumoperitoneum. Noomental or mesenteric lesions. REPRODUCTIVE ORGANS: Unremarkable. BLADDER: Normal. THORACIC, ABDOMINAL AND PELVIC WALL: Unremarkable. BONES: No acute abnormality. Multiple degenerative change is seen in thespine. IMPRESSION: 1. No acute process in the chest, abdomen or pelvis. 2. Unchanged appearance of pulmonary nodules as compared to 11/01/2018. 3. Right renal cyst. POS: [id number] Lian SANTACRUZ IMG CT ABD/PELVIS Final Res ult documented in this encounter Visit Diagnoses Diagnosis Generalized abdominal pain Abdominal pain, generalized Abnormal weight loss Loss of weight Abnormal screening computed tomography (CT) of lung Generalized abdominal pain Abdominal pain, generalized Abnormal weight loss Loss of weight Abnormal screening computed tomography (CT) of lung 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 Gastroesophageal reflux disease [...] documented as of this encounter Care Teams Explosive Ordnance Handler Relationship Specialty Start Date End Date German Apple CNP [address] [facility] [place] [address] PCP - General Family Medicine 10/17/19 German Apple CNP [address] [place] [address], [address] [place] [address] Historical LMR Provider 07/29/1712/22 Goran Guillen MD [address] [place] [address], [address] [place] [address] Insurance Assigned Provider Internal Medicine 04/04/19 Pretty Hernandez PA-C [address] [place] [address] Orthopedics & Sports Medicine, [place] [address] Physician Back Hand 01/05/24 01/08/25 Sebastien Cho MD [address] [place] [address] [place] [address] Ophthalmology 01/05/24 documented as of this encounter Additional Source Comments The information contained in this document represents components of the legal health record. It is not the complete legal health record.[facility]
--- OUTSIDE RECORDS SUMMARY | 2025-08-15 07:04 | XMS_ITS | Encounter Summary ---
Author Organization [facility] Address [address] [facility] [address] [place] [address] Phone Care Team Providers Care Environmental Coordinator Name Role Phone German Apple CNP Unavailable German Apple CNP Primary Care Provider [phone] Goran Guillen MD Unavailable [phone] German Apple CNP Primary Care Provider [phone] Pretty Hernandez PA-C Unavailable [phone] Sebastien Cho MD Unavailable Encounter Details Date Type Department Care Team (Late st Contact Info) Description 07/25/2019 Procedure Pass [facility] Admitting Dept Virtual Department [address] [place] [address] Social History Tobacco Use Types Packs/Day Years [...] 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 on file Not on file documented as of this encounter Functional Status documented as of this encounter Plan of Treatment Upcoming Encounters Date Type Department Care Team (Latest Contact Info) Description 09/18/2025 Procedure Pass [facility] Admitting Dept Virtual Department [address] [place] [id number] 09/18/2025 11:00 AM EST Hospital Encounter [facility] Admitting [facility] Virtual Department [address] [place] [address] Geo Dumont MD [address] [address] [email or web address] 09/18/2025 11:00 AM EST - 09/18/2025 11:30 AM EST Surgery [facility] Admitting Dept Virtual Department [address] [place] [address] Geo Dumont MD [address] [place] [address] [email or web address] ESOPHAGOGASTRODUODENOSCOPY 11/13/2025 9:00 AM EST Office Visit [facility] [address] [place] [address] Unknown, Unknown, Elodia Cooper, THIRD COOK [address] [place] [address] [email or web address] 01/29/2026 8:00 AM EDT Office Visit [facility] [address] [place] [address] German Apple, FARHAN [address] [facility], [address] [place] [address] [email or web address] Scheduled Procedures Name Priority Associated [...] documented as of this encounter Care Teams Environmental Coordinator Relationship Specialty Start Date End Date German Apple CNP [address] [place] [address], [address] [place] [address] [email or web address] PCP - General Family Medicine 10/05/18 10/16/19 German Apple CNP [address] [place] [address], [address] [place] [address] [email or web address] PCP - General Family Medicine 10/17/19 German Apple CNP [address] [place] [address], [address] [place] [address] [email or web address] Historical LMR Provider 07/29/1712/22 Goran Guillen MD [address] [place] [address], [address] [place] [address] Insurance Assigned Provider Internal Medicine 04/04/19 Pretty Hernandez PA-C [address] [place] [address] Orthopedics & Sports Medicine, [place] [address] [email or web address] Physician Cognos Developer 01/05/24 01/08/25 Sebastien Cho MD [address] [facility] [place] [address] Ophthalmology 01/05/24 documented as of this encounter Additional Source Comments The information contained in this document represents components of the legal health record. It is not the complete legal health record.[facility]
--- OUTSIDE RECORDS SUMMARY | 2025-08-15 07:04 | XMS_ITS | Encounter Summary ---
Author Organization [facility] Address [address] [facility] [address] [place] [address] Phone Care Team Providers Care Rag Sorter And Cutter Name Role Phone German Apple CNP Unavailable Goran Guillen MD Unavailable [phone] German Apple CNP Primary Care Provider [phone] Pretty Hernandez PA-C Unavailable Sebastien Cho MD Unavailable [phone] Encounter Details Date Type Department Care Team (Late st Contact Info) Description 11/04/2021 Procedure Pass [facility] Echo [facility] [address] [place] [address] Social History Tobacco Use Types Packs/Day Years [...] 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 file Not on file documented as of this encounter Plan of Treatment Upcoming Encounters Date Type Department Care Team (Latest Contact Info) Description 09/18/2025 Procedure Pass [facility] Endoscopy Admitting Dept Virtual Department [address] [place] [address] 09/18/2025 11:00 AM EST Hospital Encounter [facility] Endoscopy Admitting Dept Virtual Department [address] [place] [address] Geo Dumont MD [address] [address] [email or web address] 09/18/2025 11:00 AM EST - 09/18/2025 11:30 AM EST Surgery [facility] Endoscopy Admitting Dept Virtual Department [address] [place] [address] Geo Dumont MD [address] [address] [email or web address] ESOPHAGOGASTRODUODENOSCOPY 11/13/2025 9:00 AM EST Office Visit [facility] 10 [place] [address] Unknown, Unknown, Elodia Cooper, FARHAN [address] [address] [email or web address] 01/29/2026 8:00 AM EDT Office Visit [facility] [address] [place] [address] German Apple, FARHAN [address] [facility], [address] [place] [address] [email or web address] Scheduled Procedures Name Priority Associated [...] Time PHQ-2 Depression Total Score: 0 12/24/19 10:02 AM EDT documented as of this encounter Care Teams Rag Sorter And Cutter Relationship Specialty Start Date End Date German Apple CNP [address] [place] [address], [address] [place] [address] PCP - General Family Medicine 10/17/19 German Apple CNP [address] [place] [address], [address] [place] [address] Historical LMR Provider 07/29/1712/22 Goran Guillen MD [address] [place] [address], [address] [place] [address] Insurance Assigned Provider Internal Medicine 04/04/19 Pretty Hernandez PA-C [address] [place] [address] Orthopedics & Sports Medicine, [facility] [place] [address] Physician Adjudication Specialist 01/05/24 01/08/25 Sebastien Cho MD [address] [place] [address] Ophthalmology 01/05/24 documented as of this encounter Additional Source Comments The information contained in this document represents components of the legal health record. It is not the complete legal health record.[facility]
--- OUTSIDE RECORDS SUMMARY | 2025-08-15 07:04 | XMS_ITS | Clinical Summary ---
Author Organization [employer] Address [address] [place] [address] 7[address] [place] [address] Care Team Providers Care Forensic Identification Specialist Name Role Phone Unavailable Primary Care Provider Unavailabl e Allergies No known active allergies Medications albuterol 108 (90 Base) MCG/ACT inhaler Inhale 2 puffs every 6 (six) hours if needed. 3 Active atorvastatin (Lipitor) 40 MG tablet Take 40 mg by mouth in the morning. 3 Active lisinopril-hydr oCHLOROthiazide 10-12.5 MG tablet Take 1 tablet by mouth in the morning. 3 Active omeprazole (PriLOSEC) [address] capsule TAKE 1 CAPSULE BY MOUTH ONCE DAILY, TAKE 30-60 MINUTES BEFORE BREAKFAST 3 Active Active Problems Problem Noted Date Diagnosed Date Dental calculus 04/20/2023 Social History Tobacco Use Types Packs/Day Years Used Date Smoking Tobacco: Never Passive Smoke Exposure: Never Smokeless Tobacco: Never Sex and Gender Information Value Date Recorded Sex Assigned at Male 08/10/2022 10:24 AM EDT Legal Sex Male 10:24 AM EDT Gender Identity Male 08/10/2022 10:24 AM EDT Sexual Orientation Straight 08/10/2022 10 :24 AM EDT Last Filed Vital Signs Vital Sign Reading Time Taken Comments Blood Pressure 138/90 05/25/2023 9:49 AM EDT Pulse 72 04/20/2023 2:52 PM EDT Temperature - - Respiratory Rate - - Oxygen Saturation - - Inhaled Oxygen Concentration - - Weight - - Height - - Body Mass Index - - Plan of Treatment Health Maintenance Due Date Last Done Comments CT Colonography 1963 Colonoscopy 1963 Colorectal Cancer Screening 1963 Depression Screening 1963 FIT DNA/Cologuard 1963 FIT 1963 FOBT 1963 HIV Screening 1963 SDOH Screening 1963 Sigmoidoscopy 1963 Disability Screening 1963 Alcohol/Substance Use Screening 1975 Hepatitis C Screening 1981 Dental Prophylaxis 10/22/2023 04/20/2023, 0 11/25/2021, 08/04/2019, Additional history exists Dental Oral Exam 11/26/2023 05/25/2023, 01/2022, 03/11/2018, Additional history exists COVID-19 Vaccine ( season) 2025 07/02/2022, 01/27/2022, 09/02/2021, Additional history exists Influenza Vaccine (#1) 2025 , 07/06/2023, 08/25/2022, Additional history exists Tobacco Screening 06/20/2025 06/20/2024 Dental X-Ray: Bitewings 06/21/2025 06/20/20 24, 04/20/2023, 10/14/2021, Additional history exists Dental X-Ray: Full Mouth 04/21/2026 023, 08/04/2019, 08/22/2010 Lipid Panel 05/04/2028 05/04/2023 DTaP/Tdap/Td Vaccines (4 - Td or Tdap) 08/31/2033 08/31/2023, 03/01/2017, 12/30/2005 RSV Patients and Patients Aged 60 years or older (1 - 1-dose 75+ series) 2038 Zoster Vaccines Completed 12/30/2022, 01/13/2022 Pneumococcal Vaccine: 50+ Years Completed 10/10/2024 HIB Vaccines Aged Out No longer eligi ble based on patient's age to complete this topic HPV Vaccines Aged Out No longer eligi ble based on patient's age to complete this topic Hepatitis A Vaccines Aged Out No long er eligible based on patient's age to complete this topic Hepatitis B Vaccines Aged Out No long er eligible based on patient's age to complete this topic IPV Vaccines Aged Out No longer eligi ble based on patient's age to complete this topic Meningococcal B Vaccine Aged Out No l onger eligible based on patient's age to complete this topic Meningococcal Vaccine Aged Out No alysa aditya eligible based on patient's age to complete this topic RSV under 20 months Aged Out No longe r eligible based on patient's age to complete this topic Rotavirus Vaccines Aged Out No longer eligible based on patient's age to complete this topic Procedures Procedure Name Priority Date/Time Associated Diagnosis Comments BITEWING - SINGLE RADIOGRAPHIC IMAGE Routine 06/20/2024 1:00 PM EDT PERIODIC ORAL EVALUATION - ESTABLISHED PATIENT Routine 05/25/2023 10:00 AM EDT Full PROPHYLAXIS - ADULT Routine 023 3:00 PM EDT Dental calculus INTRAORAL - COMPLETE SERIES OF RADIOGRAPHIC IMAGES Routine 04/20/2023 3:00 PM EDT Dental calculus from Last 3 Months or Most Recently Relevant to Health Maintenance
[2025-08-15 07:13] VITALS: BP 172/79; PULSE 65; RESP 16; TEMP 36.1; O2SAT 96; BMI 22.1
== END 2025-08-15 07:01 | disposition home or self-care (01) ==
LOC: HO.MS 07:00
PROVIDERS: Visit Provider Ophthalmology
PROC: (CPT 66761; principal; 2025-08-15 07:30)
DX: H40.032 Anatomical narrow angle, left eye (principal)
CPT/HCPCS: 66761

== ENCOUNTER 2025-08-22 06:50 | Outpatient (REF) | payer OTHER, SELFPAY ==
--- OUTSIDE RECORDS SUMMARY | 2025-08-22 06:54 | XMS_ITS | Encounter Summary ---
Author Organization [facility] Address [address] [facility] [address] [place] [address] Phone Care Team Providers Care Spinning And Winding Supervisor Name Role Phone German Apple CNP Unavailable Goran Guillen MD Unavailable [phone] German Apple CNP Primary Care Provider [phone] Pretty Hernandez PA-C Unavailable [phone] Sebastien Cho MD Unavailable [phone] Encounter Details Date Type Department Care Team (Latest Contact Info) Description 11/30/2019 Transcribe Orders [facility] Phleb [facility] [address] [place] [address] Lian Godwin PA [address] [place] [address] [id number] Weight loss (Primary Dx); Abdominal pain, unspecified [...] 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 file Not on file Not on file documented as of this encounter Plan of Treatment Upcoming Encounters Date Type Department Care Team (Latest Contact Info) Description 09/18/2025 Procedure Pass [facility] Endoscopy Admitting Dept Virtual Department [address] [place] [address] 09/18/2025 11:00 AM EST Hospital Encounter [facility] Endoscopy Admitting Dept Virtual Department [address] [place] [address] Geo Dumont MD [address] [address] [email or web address] 09/18/2025 11:00 AM EST - 09/18/2025 11:30 AM EST Surgery [facility] Endoscopy Admitting Dept Virtual Department [address] [place] [address] Geo Dumont MD [address] [address] [email or web address] ESOPHAGOGASTRODUODENOSCOPY 11/13/2025 8:45 AM EST Office Visit [facility] [address] [place] [address] Unknown, Unknown, Elodia Cooper, FARHAN [address] [address] [email or web address] 01/29/2026 8:00 AM EDT Office Visit [facility] [place] [address] [place] [address] German Apple, FARHAN 22 [facility], [address] [place] [address] [email or web address] Scheduled Procedures Name Priority Associated Diagnoses Date/Ti me ESOPHAGOGASTRODUODENOSCOPY 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 Estimated glomerular filtration rate calculated using the CKD-EPI equation. Blood 11/30/2019 10:0 0 AM EST 11/30/2019 10:02 AM EST Lian SANTACRUZ LAB BLOOD BKR ORDERABLES Fi nal Result Performing Organization Address [facility] Co de Phone Number [address] [address] * BUN (11/30/2019 10:00 AM EST) BUN 13 6 - 19 mg/dL [facility] Blood 11/30/2019 10:0 0 AM EST 11/30/2019 10:02 AM EST Lian SANTACRUZ LAB BLOOD BKR ORDERABLES Fi nal Result Performing Organization Address [facility]/ZIP Co de Phone Number [address] [address] documented in this encounter Visit Diagnoses Diagnosis [...] documented as of this encounter Care Teams Spinning And Winding Supervisor Relationship Specialty Start Date End Date German Apple CNP [address] [place] [address], [address] [place] [address] PCP - General Family Medicine 10/17/19 German Apple CNP [address] [place] [address], [address] [place] [address] Historical LMR Provider 07/29/1712/22 Goran Guillen MD [address] [place] [address], [address] [place] [address] Insurance Assigned Provider Internal Medicine 04/04/19 Pretty Hernandez PA-C [address] [place] [address] Orthopedics & Sports Medicine, [place] [address] Physician Purifying Plant Operator 01/05/24 01/08/25 Sebastien Cho MD [address] [place] [address] [place] [address] Ophthalmology 01/05/24 documented as of this encounter Additional Source Comments The information contained in this document represents components of the legal health record. It is not the complete legal health record.[facility]
--- OUTSIDE RECORDS SUMMARY | 2025-08-22 06:55 | XMS_ITS | Encounter Summary ---
Author Organization [facility] Address [address] [facility] [address] [place] [address] Phone Care Team Providers Care Recreation Professor Name Role Phone German Apple CNP Unavailable [phone] Goran Guillen MD Unavailable [phone] German Apple CNP Primary Care Provider [phone] Pretty Hernandez PA-C Unavailable Sebastien Cho MD Unavailable Encounter Details Date Type Department Care Team (Late st Contact Info) Description 11/04/2021 Procedure Pass [facility] Echo Lab [address] [place] [address] Social History Tobacco Use Types Packs/Day Years [...] 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 file Not on file documented as of this encounter Plan of Treatment Upcoming Encounters Date Type Department Care Team (Latest Contact Info) Description 09/18/2025 Procedure Pass [facility] Endoscopy Admitting Dept Virtual Department [address] [place] [address] 09/18/2025 11:00 AM EST Hospital Encounter [facility] Endoscopy Admitting Dept Virtual Department 30 [place] [address] Geo Dumont MD [address] [address] [email or web address] 09/18/2025 11:00 AM EST - 09/18/2025 11:30 AM EST Surgery [facility] Endoscopy Admitting Dept Virtual Department [address] [place] [address] Geo Dumont MD [address] [address] [email or web address] ESOPHAGOGASTRODUODENOSCOPY 11/13/2025 8:45 AM EST Office Visit [facility] 10 [place] [address] Unknown, Unknown, Elodia Cooper, FARHAN [address] [address] [email or web address] 01/29/2026 8:00 AM EDT Office Visit [facility] [address] [place] [address] German Apple, FARHAN 22 [facility], [address] [place] [address] [email or web address] Scheduled Procedures Name Priority Associated [...] documented as of this encounter Care Teams Recreation Professor Relationship Specialty Start Date End Date German Apple CNP [address] [place] [address], [address] [place] [address] PCP - General Family Medicine 10/17/19 German Apple CNP [address] [place] [address], [address] [place] [address] Historical LMR Provider 07/29/1712/22 Goran Guillen MD [address] [place] [address], [address] [place] [address] Insurance Assigned Provider Internal Medicine 04/04/19 Pretty Hernandez PA-C [address] [place] [address] Orthopedics & Sports Medicine, [facility] [place] [address] Physician Cytogenetic Technician 01/05/24 01/08/25 Sebastien Cho MD [address] [place] [address] Ophthalmology 01/05/24 documented as of this encounter Additional Source Comments The information contained in this document represents components of the legal health record. It is not the complete legal health record.[facility]
--- OUTSIDE RECORDS SUMMARY | 2025-08-22 06:55 | XMS_ITS | Encounter Summary ---
Author Organization [facility] Address [address] [facility] [address] [place] [address] Phone Care Team Providers Care Manager House Name Role Phone Goran Guillen MD Unavailable [phone] German Apple CNP Primary Care Provider Sebastien Cho MD Unavailable [phone] Encounter Details Date Type Department Care Team (Latest Contact Info) Description 06/18/2025 Transcribe Orders [facility] Phleb Joy 10 [facility] 2nd [place], [place] [id number] Elodia Godoy NP 10 [place], [place] [phone] Cough, unspecified type (Primary Dx); Family history [...] high school, GED, job training, learning the Urdu language, technical skills, or developing parenting skills)? 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 on file Not on file Not on file documented as of this encounter Plan of Treatment Upcoming Encounters Date Type Department Care Team (Latest Contact Info) Description 09/18/2025 Procedure Pass [facility] Endoscopy Admitting Dept Virtual Department [address] [place] [address] 09/18/2025 11:00 AM EST Hospital Encounter [facility] Endoscopy Admitting Dept Virtual Department [address] [place] [address] Geo Dumont MD [address] [address] [email or web address] 09/18/2025 11:00 AM EST - 09/18/2025 11:30 AM EST Surgery [facility] Endoscopy Admitting Dept Virtual Department [address] [place] [address] Geo Dumont MD [address] [place] [address] [email or web address] ESOPHAGOGASTRODUODENOSCOPY 11/13/2025 8:45 AM EST Office Visit [facility] [address] [place] [address] Unknown, Unknown, Elodia Cooper, FARHAN [address] [place] [address] [email or web address] 01/29/2026 8:00 AM EDT Office Visit [facility] [address] [place] [address] German Apple, FARHAN 22 [facility], [address] [place] [address] [email or web address] Scheduled Procedures Name Priority Associated [...] VITAMIN B12 525 232 - 1,245 pg/mL [facility] Blood 06/18/2025 10:2 6 AM EDT 06/18/2025 10:28 AM EDT Elodia Godoy NP LAB BLOOD BKR ORDERABLES Final Result Performing Organization Address [facility] Co de Phone Number [address] [address] * Iron and iron binding capacity (06/18/2025 10:26 AM EDT) IRON 71 45 - 160 ug/dL [facility] IRON BINDING CAPACITY 306 228 - 428 ug/dL [facility] TRANSFERRIN SATURAT. 23 20 - 55 % [facility] Blood 06/18/2025 10:2 6 AM EDT 06/18/2025 10:28 AM EDT Elodia Godoy NP LAB BLOOD BKR ORDERABLES Final Result Performing Organization Address City/[facility]/ZIP Co de Phone Number [address] [address] * (ABNORMAL) CBC (06/18/2025 10:26 AM EDT) WBC 5.65 4.00 - 11.00 K/uL [facility] RBC 6.79(H) 4.50 - 5.90 M/uL [facility] HGB 13.7 13.5 - 17.5 g/dL [facility] HCT 44.6 41.0 - 53.0 % [facility] PLT 312 150 - 450 K/uL [facility] MCV 65.7(L) 80.0 - 100.0 fL [facility] MCH 20.2(L) 27.0 - 31.0 pg [facility] MCHC 30.7(L) 32.0 - 36.0 g/dL [facility] RDW 19.1(H) 11.5 - 14.5 % [facility] MPV 10.1 8.4 - 12.0 fL [facility] NRBC 0.00 0.00 /100 WBCs [facility] ABSOLUTE NRBC 0.00 0.00 K/uL [facility] Blood 06/18/2025 10:2 6 AM EDT 06/18/2025 10:28 AM EDT Elodia Godoy FASHION STYLING INTERN LAB BLOOD BKR ORDERABLES Final Result Performing Organization Address City/State/[facility] Co de Phone Number [facility] [address] [place] [address] documented in this encounter Visit Diagnoses Diagnosis [...] documented as of this encounter Care Teams Manager House Relationship Specialty Start Date End Date German Apple CNP [address] [place] [address], [address] [place] [address] [email or web address] PCP - General Family Medicine 10/17/19 Goran Guillen MD [address] [place] [address], [address] [place] [address] [email or web address] Insurance Assigned Provider Internal Medicine 04/04/19 Sebastien Cho MD [address] [place] [address] Ophthalmology 01/05/24 documented as of this encounter Additional Source Comments The information contained in this document represents components of the legal health record. It is not the complete legal health record.[facility]
--- OUTSIDE RECORDS SUMMARY | 2025-08-22 06:56 | XMS_ITS | Encounter Summary ---
Author Organization [facility] Address [address] [place] [address] Phone Care Team Providers Care Corduroy Cutter Operator Name Role Phone German Apple CNP Unavailable [phone] German Apple CNP Primary Care Provider [phone] Goran Guillen MD Unavailable [phone] German Apple CNP Primary Care Provider [phone] Pretty Hernandez PA-C Unavailable Sebastien Cho MD Unavailable Encounter Details Date Type Department Care Team (Latest Contact Info) Description 06/20/2019 Transcribe Orders [facility] [address] [place], [place] [id number] Mali Lopez, BUSINESS SUPPORT LIAISON 10 [place], [place] [phone] Family history of colon cancer (Primary Dx); [...] 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 Not on file documented as of this encounter Plan of Treatment Upcoming Encounters Date Type Department Care Team (Latest Contact Info) Description 09/18/2025 Procedure Pass [facility] Endoscopy Admitting Dept Virtual Department [address] [place] [address] 09/18/2025 11:00 AM EST Hospital Encounter [facility] Admitting Dept Virtual Department 30 [place] [address] Geo Dumont MD [address] [address] [email or web address] 09/18/2025 11:00 AM EST - 09/18/2025 11:30 AM EST Surgery [facility] End[facility] Admitting Dept Virtual Department [address] [place] [address] Geo Dumont MD [address] [address] [email or web address] ESOPHAGOGASTRODUODENOSCOPY 11/13/2025 8:45 AM EST Office Visit [facility] [address] [place] [address] Unknown, Unknown, Elodia Cooper, FARHAN [address] [place] [address] [email or web address] 01/29/2026 8:00 AM EDT Office Visit [facility] [address] [place] [address] German Apple, FARHAN [address] [facility], [address] [place] [address] [email or web address] Scheduled Procedures Name Priority Associated [...] EDT) SODIUM 142 133 - 146 mmol/L [facility] POTASSIUM 3.9 3.3 - 5.1 mmol/L [facility] CHLORIDE 102 96 - 108 mmol/L [facility] CO2 27 21 - 35 mmol/L [facility] BUN 18 6 - 19 mg/dL [facility] CREATININE 0.60 0.5 - 1.5 mg/dL [facility] GLUCOSE 115(H) 70 - 99 mg/dL [facility] ALBUMIN 4.9(H) 3.9 - 4.8 g/dL [facility] TOTAL PROTEIN 7.5 6.5 - 8.0 g/dL [facility] CALCIUM 10.1 8.4 - 10.3 mg/dL [facility] ALKALINE PHOSPHATASE 62 39 - 117 U/L [facility] TOTAL BILIRUBIN 0.5 0.0 - 1.2 mg/dL [facility] AST 29 0 - 37 U/L [facility] ALT 18 0 - 40 U/L [facility] GLOBULIN 2.6 1 - 4.8 g/dL [facility] EGFR 113 >59 mL/min/1.7 3m2 [facility] Comment:If patient is black, multiply result by 1.159. Estimated glomerular filtration rate calculated using the CKD-EPI equation. ANION GAP 17 10 - 20 mmol/L [facility] Blood 06/20/2019 4:18 PM EDT 06/20/2019 4:20 PM EDT us Mali Lopez [facility] LAB BLOOD BKR ORDERABLES F inal Result [facility] [address] [place] [address] * (ABNORMAL) CBC and differential (06/20/2019 4:18 PM EDT) WBC 6.37 3.40 - 11.20 K/uL [facility] RBC 6.31(H) 4.50 - 5.50 M/uL [facility] HGB 12.9(L) 13.0 - 17.0 g/dL [facility] HCT 40.8 40.0 - 51.0 % [facility] PLT 314 130 - 400 K/uL [facility] MCV 64.7(L) 79.0 - 98.0 fL [facility] MCH 20.4(L) 27.0 - 34.8 pg [facility] MCHC 31.6 31.5 - 36.0 g/dL [facility] RDW 18.0(H) 10.8 - 14.6 % [facility] MPV 10.4 9.4 - 12.4 fl [facility] NRBC 0.00 0.00 /100 WBCs [facility] ABSOLUTE NRBC 0.00 0.00 K/uL [facility] DIFF METHOD Auto [facility] NEUTS 57.4 45.30 - 77.70 % [facility] LYMPHS 31.9 12.30 - 39.70 % [facility] MONOS 7.2 4.10 - 12.80 % [facility] EOS 3.0 0 - 7.2 % [facility] BASOS 0.3 0 - 2.80 % [facility] Granulocytes, immature (%) 0.2 0.0 - 0.9 % [facility] ABSOLUTE NEUTS 3.66 1.40 - 7.70 K/uL [facility] ABSOLUTE LYMPHS 2.03 0.60 - 3.20 K/uL [facility] ABSOLUTE MONOS 0.46 0.11 - 0.59 K/uL [facility] ABSOLUTE EOS 0.19 0.01 - 0.50 K/uL [facility] ABSOLUTE BASOS 0.02 0.00 - 0.08 K/uL [facility] Granulocytes, immature 0.01 0.00 - 0.05 K/uL [facility] Blood 06/20/2019 4:18 PM EDT 06/20/2019 4:20 PM EDT Mali Lopez [facility] LAB BLOOD BKR ORDERABLES F inal Result Performing Organization Address City/[facility]/ZIP Co de Phone Number [address] [address] * Immunoglobulin A (06/20/2019 4:18 PM EDT) IgA 230 70 - 400 mg/dL [facility] Blood 06/20/2019 4:18 PM EDT 06/20/2019 4:20 PM EDT Mali Lopez [facility] LAB BLOOD BKR ORDERABLES F inal Result Performing Organization Address [facility] Co de Phone Number [address] [address] * Tissue transglutaminase IgA (06/20/2019 4:18 PM EDT) TTG IGA ANTIBODY <1.2 <4.0 (Negative) U/mL [facility] Blood 06/20/2019 4:18 PM EDT 06/20/2019 4:19 PM EDT Mali Lopez [facility] LAB BLOOD BKR ORDERABLES F inal Result Performing Organization Address [facility] Co de Phone Number [facility] [address] [place] [address] documented in this encounter Visit Diagnoses Diagnosis [...] documented as of this encounter Care Teams Corduroy Cutter Operator Relationship Specialty Start Date End Date JoanneGerman polancoFARHAN [address] [facility], [address] [place] [address] PCP - General Family Medicine 10/05/18 10/16/19 German Apple CNP [address] [facility], [address] [place] [address] PCP - General Family Medicine 10/17/19 German Apple CNP [address] [place] [address], [address] [place] [address] Historical LMR Provider 07/29/1712/22 Goran Guillen MD [address] [place] [address], [address] [place] [address] Insurance Assigned Provider Internal Medicine 04/04/19 Pretty Hernandez PA-C [address] [place] [address] Orthopedics & Sports Medicine, [facility] [place] [address] Physician Block Feeder 01/05/24 01/08/25 Sebastien Cho MD [address] [place] [address] Ophthalmology 01/05/24 documented as of this encounter Additional Source Comments The information contained in this document represents components of the legal health record. It is not the complete legal health record.[facility]
--- OUTSIDE RECORDS SUMMARY | 2025-08-22 06:56 | XMS_ITS | Clinical Summary ---
Author Organization [facility] Address [address] [employer] [facility] [address] [place] [address] Phone Care Team Providers Care Forest Fire Control Officer Name Role Phone Goran Guillen MD Unavailable [phone] German Apple CNP Primary Care Provider [phone] Sebastien Cho MD Unavailable Allergies No known active allergies Medications omeprazole [...] as needed for wheezing or shortness of breath/dyspnea . 6.7 g 1 5 Active atorvastatin (LIPITOR) 80 MG tablet Take 1 tablet (80 mg total) by mouth daily. 90 tablet 1 5 Active betamethasone dipropionate 0.05 % ointmentIndicatio ns:Urticaria Apply topically 2 (two) times a day. 45 g 1 5 Active lisinopril-hydroC HLOROthiazide (PRINZIDE,ZESTORE TIC) 10-12.5 mg per tabletIndications :Essential (primary) hypertension Take 1 tablet by mouth once daily 90 tablet 5 Active cyclobenzaprine (FLEXERIL) 5 MG tabletIndications :Acute right-sided low back pain with right-sided sciatica Take 1 tablet (5 mg total) by mouth nightly at bedtime. 10 tablet 5 Active Active Problems Problem Noted Date Diagnosed Date Heartburn 01/05/2024 Assessment & Plan (03/28/2025 8:56 AM EDT): Currently asymptomatic on PPI. New referral placed to GI for this and colonoscopy. Daughter can assist with scheduling. Orders: External Referral to Gastroenterology ([facility]) Assessment & Plan (01/09/2025 9:56 AM EDT): Schedule follow up with [facility] now that insurance is stable. Assessment & Plan (07/11/2024 8:52 AM EDT): He last traveled to [facility] 1-2 years ago. He had H pylori [...] are up to date. Next CRC screening [phone]. Will discuss his preference at his next [...] 11:59 PM EDT Hospital Encounter [facility] [address] [place] [address] German Apple CNP Discharge Disposition: Home or Self Care 07/17/2025 9:30 AM EDT Office Visit [facility] [address] [place] [address] German Apple CNP Essential (primary) hypertension (Primary Dx); Pure hypercholesterolemia; Prediabetes; Acute right-sided low back pain with right-sided sciatica; Tinnitus, bilateral; Immunization counseling 06/18/2025 10:25 AM EDT - 06/18/2025 11:59 PM EDT Hospital Encounter [facility] [address] [place] [address] Elodia Godoy NP Discharge Disposition: Home or Self Care 06/18/2025 Transcribe Orders [facility] Phleb [place] [address] [address] Elodia Godoy, NATHANIEL Cough, unspecified type (Primary Dx); Family history of malignant neoplasm of gastrointestinal tract; Abdominal pain, epigastric; Bloating 06/12/2025 Refill [facility] [address] [place] [address] German Apple CNP Medication Refill from Last [...] high school, GED, job training, learning the Lithuanian language, technical skills, or developing parenting skills)? [...] your housing situation today? 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 on file Not [...] Pass [facility] Endoscopy Admitting Dept Virtual Department [address] [place] [address] 09/18/2025 11:00 AM EST Hospital Encounter [facility] Endoscopy Admitting Dept Virtual Department [address] [place] [address] Molly Sandoval MD [address] [place] [address] [email or web address] 09/18/2025 11:00 AM EST - 09/18/2025 11:30 AM EST Surgery [facility] Endoscopy Admitting Dept Virtual Department 30 [place] [address] Molly Sandoval MD [address] [address] [email or web address] ESOPHAGOGASTRODUODENOSCOPY 11/13/2025 8:45 AM EST Office Visit [facility] 10 [place] [address] Unknown, Unknown, Elodia Cooper, COLOR CHECKER ROVING OR YARN [address] [address] [email or web address] 01/29/2026 8:00 AM EDT Office Visit [facility] [address] [place] [address] German Apple, COLOR CHECKER ROVING OR YARN [address] [facility], [address] [place] [address] [email or web address] Scheduled Procedures Name Priority Associated [...] patient's age to complete this topic IPV VACCINES Aged Out No longer eligi ble [...] EDT) SODIUM 143 133 - 146 mmol/L [facility] POTASSIUM 3.8 3.3 - 5.1 mmol/L [facility] CHLORIDE 103 96 - 108 mmol/L [facility] CO2 28 21 - 35 mmol/L [facility] BUN 16 6 - 19 mg/dL [facility] CREATININE 0.70 0.5 - 1.5 mg/dL [facility] GLUCOSE 100(H) 70 - 99 mg/dL [facility] ALBUMIN 4.4 3.9 - 4.8 g/dL [facility] TOTAL PROTEIN 7.1 6.5 - 8.0 g/dL [facility] CALCIUM 9.9 8.4 - 10.3 mg/dL [facility] ALKALINE PHOSPHATASE 77 39 - 117 U/L [facility] TOTAL BILIRUBIN 0.5 0.0 - 1.2 mg/dL [facility] AST 25 0 - 37 U/L [facility] ALT 18 0 - 40 U/L [facility] GLOBULIN 2.7 1 - 4.8 g/dL [facility] EGFR 105 >59 mL/min/1.7 3m2 [facility] Comment:Estimated glomerular filtration rate calculated using the CKD-EPI refit equation. ANION GAP 16 10 - 20 mmol/L [facility] Blood 07/17/2025 10:0 8 AM EDT 07/17/2025 10:12 AM EDT [facility] LAB BLOOD BKR ORDERABLES Final Result Performing Organization Address [facility] Co de Phone Number [address] [address] * (ABNORMAL) Hemoglobin A1c (07/17/2025 10:08 AM EDT) HEMOGLOBIN A1C 6.4(H) 4.3 - 5.8 % [facility] Blood 07/17/2025 10:0 8 AM EDT 07/17/2025 10:12 AM EDT [facility] LAB BLOOD BKR ORDERABLES Final Result Performing Organization Address [facility] Co de Phone Number [address] [address] * (ABNORMAL) Lipid panel (07/17/2025 10:08 AM EDT) HDL 45 mg/dL [facility] Comment: Interpretation <40 mg/dL: Low HDL cholesterol (major risk factor for CHD) Greater than or equal to 60 mg/dL: High HDL cholesterol ( negative risk factor for CHD) HDL - cholesterol is affected by a number of factors, e.g. smoking, excerise, hormones, sex and age. CHOLESTEROL 144 0 - 240 mg/dL [facility] TRIGLYCERIDES 151 30 - 160 mg/dL [facility] LDL 69 50 - 129 mg/dL [facility] Comment: LDL levels in terms of risk for coronary heart disease: <100 mg/dL: Optimal 100-129 mg/dL: Near or above optimal 130-159 mg/dL: Borderline high 160-189 mg/dL: High >190 mg/dL: Very High CARDIAC RISK RATIO 3.2(L) 3.4 - 5.0 [facility] Blood 07/17/2025 10:0 8 AM EDT 07/17/2025 10:12 AM EDT us German Apple COLOR CHECKER ROVING OR YARN LAB BLOOD BKR ORDERABLES Final Result Performing Organization Address City/[facility]/ZIP Co de Phone Number [address] [address] * Iron and iron binding capacity (06/18/2025 10:26 AM EDT) IRON 71 45 - 160 ug/dL [facility] IRON BINDING CAPACITY 306 228 - 428 ug/dL [facility] TRANSFERRIN SATURAT. 23 20 - 55 % [facility] Blood 06/18/2025 10:2 6 AM EDT 06/18/2025 10:28 AM EDT us Elodia Godoy CHEMISTRY TECHNOLOGIST LAB BLOOD BKR ORDERABLES Final Result Performing Organization Address [facility]/ZIP Co de Phone Number [address] [address] * (ABNORMAL) CBC (06/18/2025 10:26 AM EDT) WBC 5.65 4.00 - 11.00 K/uL [facility] RBC 6.79(H) 4.50 - 5.90 M/uL [facility] HGB 13.7 13.5 - 17.5 g/dL [facility] HCT 44.6 41.0 - 53.0 % [facility] PLT 312 150 - 450 K/uL [facility] MCV 65.7(L) 80.0 - 100.0 fL [facility] MCH 20.2(L) 27.0 - 31.0 pg [facility] MCHC 30.7(L) 32.0 - 36.0 g/dL [facility] RDW 19.1(H) 11.5 - 14.5 % [facility] MPV 10.1 8.4 - 12.0 fL [facility] NRBC 0.00 0.00 /100 WBCs [facility] ABSOLUTE NRBC 0.00 0.00 K/uL [facility] Blood 06/18/2025 10:2 6 AM EDT 06/18/2025 10:28 AM EDT us Elodia Godoy CHEMISTRY TECHNOLOGIST LAB BLOOD BKR ORDERABLES Final Result Performing Organization Address [facility]/ZIP Co de Phone Number [address] [address] * Vitamin B12 (06/18/2025 10:26 AM EDT) VITAMIN B12 525 232 - 1,245 pg/mL [facility] Blood 06/18/2025 10:2 6 AM EDT 06/18/2025 10:28 AM EDT us Elodia Godoy NP LAB BLOOD BKR ORDERABLES Final Result Performing Organization Address [facility] de Phone Number [address] [address] * Hepatitis C antibody, qualitative (11/04/2021 9:39 AM EST) HCV NON-REACTIV E NON-REACTI VE [facility] Blood 11/04/2021 9:39 AM EST 11/04/2021 9:43 AM EST us German Apple COLOR CHECKER ROVING OR YARN LAB BLOOD BKR ORDERABLES Final Result Performing Organization Address [facility] de Phone Number [address] [address] * ENDOSCOPY, COLON (07/25/2019 11:40 AM EDT) Narrative Transcriptions Molly Sandoval MD - 07/25/2019 11:40 AM EDT Patient Name: Radha Zhou Attending MD:: MOLLY SANDOVAL MD Procedure Date: 07/25/2019 11:40AM Date of : 1965 Age: 53 Admit Type: Outpatient Gender: Male Room: [facility] 04 Referring MD: MOLLY CHRISTIANSEN MD Exam Type: [...] monitored continuously. The Olympus adult variable colonoscope [id number] #2 was introduced through the anus and [...] 11:40 AM Procedure Code(s): --- Professional --- 73213, Colonoscopy, flexible; diagnostic, including collection of specimen(s) by brushing or washing, when performed (separateprocedure) --- Technical --- 11789, Colonoscopy, flexible; diagnostic, including collection of specimen(s) by brushing or washing, when performed (separateprocedure) Diagnosis Code(s): --- Professional --- R10.84, Generalized abdominal pain Z80.0, Family history of malignant neoplasm of digestive organs --- Technical --- R10.84, Generalized abdominal pain Z80.0, Family history of malignant neoplasm of digestive organs CPT copyright 2018 [employer]. All rights reserved. The codes documented in this report are preliminary and upon new car driver reviewmay be revised to meet current compliance requirements. [address] [place] [address] Molly Christiansen MD GI PROCEDURE ORDERABLES Fi nal Result from Last 3 Months or Most Recently Relevant to Health Maintenance Insurance [facility] NON NSP PCP [facility] WELLSENSE NON NSPG PCP SILVER [employer]CTORCARE WELLSENSE NON NSPG PCP SILVER CLARITY CONNECTORCARE WELLSENSE NON NSPG PCP SILVER CLARITY CONNECTORCARE WELLSENSE NON NSPG PCP SILVER CLARITY CONNECTORCARE WAPWALLOPENENSE NON NSPG PCP SILVER CLARITY CONNECTORCARE WELLSENSE NON NSPG PCP SILVER CLARITY CONNECTORCARE WELLSENSE NON NSPG PCP SILVER CLARITY CONNECTORCARE WELLSENSE NON NSPG PCP SILVER CLARITY CONNECTORCARE Care Teams Forest Fire Control Officer Relationship Specialty Start Date End Date German Apple CNP [address] [place] [address], [address] [place] [address] PCP - General Family Medicine 10/17/19 Goran Guillen MD [address] [place] [address], [address] [place] [address] Insurance Assigned Provider Internal Medicine 04/04/19 Sebastien Cho MD [address] [facility] [place] [address] Ophthalmology 01/05/24 Additional Source Comments The information contained in this document represents components of the legal health record. It is not the complete legal health record.[facility]
--- OUTSIDE RECORDS SUMMARY | 2025-08-22 06:56 | XMS_ITS | Clinical Summary ---
Author Organization [employer] Address [address] [place] [address] 7t [place] [address] Care Team Providers Care Acquisitions Editor Name Role Phone Unavailable Primary Care Provider [...]
--- OUTSIDE RECORDS SUMMARY | 2025-08-22 06:56 | XMS_ITS | Encounter Summary ---
Author Organization [employer] Address [address] [place] [address] 7 [place] [address] Care Team Providers Care Mailing Jogger Name Role Phone Unavailable Primary Care Provider Unavailabl e Encounter Details Date Type Department Care Team (Latest Contact Info) Description 02/02/2019 Abstract [facility] CONVERSIONS Dental, Provider, DDS Social History [...]
--- OUTSIDE RECORDS SUMMARY | 2025-08-22 06:56 | XMS_ITS | Encounter Summary ---
Author Organization [facility] Address [email or web address] [facility] [address] [place] [address] Phone Care Team Providers Care Web Press Roll Tender Name Role Phone German Apple CNP Unavailable Goran Guillen MD Unavailable [phone] German Apple CNP Primary Care Provider [phone] Pretty Hernandez PA-C Unavailable Sebastien Cho MD Unavailable Encounter Details Date Type Department Care Team (Late st Contact Info) Description 10/30/2019 Transcribe Orders Virtual Department 30 [place] [address] Lian Godwin PA [address] [place] [address] Social History Tobacco Use Types Packs/Day Years [...] 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 file Not on file documented as of this encounter Plan of Treatment Upcoming Encounters Date Type Department Care Team (Latest Contact Info) Description 09/18/2025 Procedure Pass [facility] Endoscopy Admitting Dept Virtual Department [address] [place] [address] 09/18/2025 11:00 AM EST Hospital Encounter [facility] Endoscopy Admitting Dept Virtual Department [address] [place] [address] Geo Dumont MD [address] [address] [email or web address] 09/18/2025 11:00 AM EST - 09/18/2025 11:30 AM EST Surgery [facility] Endoscopy Admitting Dept Virtual Department [address] [place] [address] Geo Dumont MD [address] [address] [email or web address] ESOPHAGOGASTRODUODENOSCOPY 11/13/2025 8:45 AM EST Office Visit [facility] 10 [place] [address] Unknown, Unknown, Elodia Cooper, FARHAN [address] [place] [address] [email or web address] 01/29/2026 8:00 AM EDT Office Visit [facility] [address] [place] [address] German Apple, FARHAN [address] [facility], [address] [place] [address] [email or web address] Scheduled Procedures Name Priority Associated [...] documented as of this encounter Care Teams Web Press Roll Tender Relationship Specialty Start Date End Date German Apple CNP [address] [place] [address], [address] [place] [address] PCP - General Family Medicine 10/17/19 German Apple CNP [address] [place] [address], [address] [place] [address] Historical LMR Provider 07/29/1712/22 Goran Guillen MD [address] [place] [address], [address] [place] [address] Insurance Assigned Provider Internal Medicine 04/04/19 Pretty Hernandez PA-C [address] [place] [address] Orthopedics & Sports Medicine, [place], [place] [phone] Physician Interdisciplinary Professor 01/05/24 01/08/25 Sebastien Cho MD [address] [place] [address] Ophthalmology 01/05/24 documented as of this encounter Additional Source Comments The information contained in this document represents components of the legal health record. It is not the complete legal health record.[facility]
--- OUTSIDE RECORDS SUMMARY | 2025-08-22 06:56 | XMS_ITS | Encounter Summary ---
Author Organization [facility] Address [address] [facility] [address] [place] [address] Phone Care Team Providers Care Lining Finisher Name Role Phone Manuel Sauer MD Unavailable German Apple CNP Unavailable German Apple CNP Primary Care Provider [phone] Goran Guillen MD Unavailable [phone] German Apple CNP Primary Care Provider [phone] Pretty Hernandez PA-C Unavailable [phone] Sebastien Cho MD Unavailable [phone] Encounter Details Date Type Department Care Team (Late st Contact Info) Description 04/04/2019 EpicOnHand Encounter [facility] at [address] [address] Jace Anaya DO 30 [place] [address] [email or web address] Social History Tobacco Use Types Packs/Day Years [...] Pass [facility] Endoscopy Admitting Dept Virtual Department [address] [place] [address] 09/18/2025 11:00 AM EST Hospital Encounter [facility] Endoscopy Admitting Dept Virtual Department [address] [place] [address] Geo Dumont MD [address] [address] [email or web address] 09/18/2025 11:00 AM EST - 09/18/2025 11:30 AM EST Surgery [facility] Endoscopy Admitting Dept Virtual Department [address] [place] [address] Geo Dumont MD [address] [address] [email or web address] ESOPHAGOGASTRODUODENOSCOPY 11/13/2025 8:45 AM EST Office Visit [facility] [address] [place] [address] Unknown, Unknown, Elodia Cooper, FARHAN [address] [address] [email or web address] 01/29/2026 8:00 AM EDT Office Visit [facility] [address] [place] [address] German Apple, FARHAN [address] [facility], [address] [place] [address] [email or web address] Scheduled Procedures Name Priority Associated [...] documented as of this encounter Care Teams Lining Finisher Relationship Specialty Start Date End Date German Apple CNP [address] [place] [address], [address] [place] [address] [email or web address] PCP - General Family Medicine 10/05/18 10/16/19 German Apple CNP [address] [place] [address], [address] [address] PCP - General Family Medicine 10/17/19 Manuel Sauer MD [address] [place] [address], [address] [place] [address] Historical LMR Provider 07/29/17 9 German Apple CNP [address] [place] [address], [address] [address] Historical LMR Provider 07/29/1712/22 Groan Guillen MD [address] [place], [place] [address] [place] [address] [email or web address] Insurance Assigned Provider Internal Medicine 04/04/19 Pretty Hernandez PA-C [address] [place] [address] Orthopedics & Sports Medicine, [facility] [place] [address] [email or web address] Physician Blasting Gang Miner 01/05/24 01/08/25 Sebastien Cho MD [address] [place] [address] [place] [address] Ophthalmology 01/05/24 documented as of this encounter Additional Source Comments The information contained in this document represents components of the legal health record. It is not the complete legal health record.[facility]
--- OUTSIDE RECORDS SUMMARY | 2025-08-22 06:56 | XMS_ITS | Encounter Summary ---
Author Organization [facility] Address [address] [employer] [facility] [address] [place] [address] Phone Care Team Providers Care Credit Control Assistant Name Role Phone German Apple CNP Unavailable Goran Guillen MD Unavailable [phone] German Apple CNP Primary Care Provider [phone] Pretty Hernandez PA-C Unavailable Sebastien Cho MD Unavailable [phone] Encounter Details Date Type Department Care Team (Latest Contact Info) Description 11/02/2019 Transcribe Orders Virtual Department 30 [place] [address] Lian Godwin PA [address] [place] [address] Generalized abdominal pain (Primary Dx); Abnormal weight [...] 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 Not on file documented as of this encounter Plan of Treatment Upcoming Encounters Date Type Department Care Team (Latest Contact Info) Description 09/18/2025 Procedure Pass [facility] Endoscopy Admitting Dept Virtual Department [address] [place] [address] 09/18/2025 11:00 AM EST Hospital Encounter [facility] Endoscopy Admitting Dept Virtual Department [address] [place] [address] Geo Dumont MD [address] [address] [email or web address] 09/18/2025 11:00 AM EST - 09/18/2025 11:30 AM EST Surgery [facility] Endoscopy Admitting Dept Virtual Department [address] [place] [address] Geo Dumont MD [address] [place] [address] [email or web address] ESOPHAGOGASTRODUODENOSCOPY 11/13/2025 8:45 AM EST Office Visit [facility] [address] [place] [address] Unknown, Unknown, lEodia Cooper, FARHAN [address] [place] [address] [email or web address] 01/29/2026 8:00 AM EDT Office Visit [facility] [address] [place] [address] German Apple, FARHAN 22 [facility], [address] [place] [address] [email or web address] Scheduled Procedures Name Priority Associated [...] documented as of this encounter Care Teams Credit Control Assistant Relationship Specialty Start Date End Date German Apple CNP [address] [place] [address] PCP - General Family Medicine 10/17/19 German Apple CNP [address] [place] [address], [address] [address] Historical LMR Provider 07/29/1712/22 Goran Guillen MD [address] [place] [address], [address] [address] Insurance Assigned Provider Internal Medicine 04/04/19 Pretty Hernandez PA-C [address] [place] [address] Orthopedics & Sports Medicine, [place] [address] Physician Vascular Manager 01/05/24 01/08/25 Sebastien Cho MD [address] [place] [address] Ophthalmology 01/05/24 documented as of this encounter Additional Source Comments The information contained in this document represents components of the legal health record. It is not the complete legal health record.[facility]
--- OUTSIDE RECORDS SUMMARY | 2025-08-22 06:56 | XMS_ITS | Encounter Summary ---
Author Organization [facility] Address [address] [facility] [address] [place] [address] Phone Care Team Providers Care Gear Finisher Name Role Phone German Apple CNP Unavailable German Apple CNP Primary Care Provider [phone] Goran Guillen MD Unavailable [phone] German Apple CNP Primary Care Provider [phone] Pretty Hernandez PA-C Unavailable [phone] Sebastien Cho MD Unavailable [phone] Encounter Details Date Type Department Care Team (Late st Contact Info) Description 07/25/2019 Procedure Pass [facility] Endoscopy Admitting Dept Virtual Department 30 [place] [address] Social History Tobacco Use Types Packs/Day Years [...] 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 file Not on file documented as of this encounter Functional Status documented as of this encounter Plan of Treatment Upcoming Encounters Date Type Department Care Team (Latest Contact Info) Description 09/18/2025 Procedure Pass [facility] Endoscopy Admitting Dept Virtual Department [address] [place] [address] 09/18/2025 11:00 AM EST Hospital Encounter [facility] Endoscopy Admitting Dept Virtual Department [address] [place] [address] Geo Dumont MD [address] [address] [email or web address] 09/18/2025 11:00 AM EST - 09/18/2025 11:30 AM EST Surgery [facility] Endoscopy Admitting Dept Virtual Department [address] [place] [address] Geo Dumont MD [address] [place] [address] [email or web address] ESOPHAGOGASTRODUODENOSCOPY 11/13/2025 8:45 AM EST Office Visit [facility] [address] [place] [address] Unknown, Unknown, Elodia Cooper, ACCOUNTING MACHINE MECHANIC [address] [place] [address] [email or web address] 01/29/2026 8:00 AM EDT Office Visit [facility] [address] [place] [address] German Apple, FARHAN 22 [facility], [address] [place] [address] [email or web address] Scheduled Procedures Name Priority Associated [...] documented as of this encounter Care Teams Gear Finisher Relationship Specialty Start Date End Date German Apple CNP [address] [place] [address], [address] [place] [address] [email or web address] PCP - General Family Medicine 10/05/18 10/16/19 German Apple CNP [address] [place] [address], [address] [place] [address] [email or web address] PCP - General Family Medicine 10/17/19 German Apple CNP [address] [place] [address], [address] [place] [address] [email or web address] Historical LMR Provider 07/29/1712/22 Goran Guillen MD [address] [place] [address], [address] [place] [address] Insurance Assigned Provider Internal Medicine 04/04/19 Pretty Hernandez PA-C [address] [place] [address] Orthopedics & Sports Medicine, [place] [address] [email or web address] Physician Terminal Gauger 01/05/24 01/08/25 Sebastien Cho MD [address] [facility] [place] [address] Ophthalmology 01/05/24 documented as of this encounter Additional Source Comments The information contained in this document represents components of the legal health record. It is not the complete legal health record.[facility]
--- OUTSIDE RECORDS SUMMARY | 2025-08-22 06:56 | XMS_ITS | Encounter Summary ---
Author Organization [employer] Address [address] [place] [address] 7 [place] [address] Care Team Providers Care Resin Shaver Name Role Phone Unavailable Primary Care Provider Unavailabl e Encounter Details Date Type Department Care Team (Latest Contact Info) Description 11/25/2021 Abstract [facility] CONVERSIONS Dental, Provider, DDS Social History Tobacco [...]
--- OUTSIDE RECORDS SUMMARY | 2025-08-22 06:56 | XMS_ITS | Encounter Summary ---
Author Organization [facility] Address [address] [facility] [address] [place] [address] Phone Care Team Providers Care Global Lead Name Role Phone German Apple CNP Unavailable Goran Guillen MD Unavailable [phone] German Apple CNP Primary Care Provider [phone] Pretty Hernandez PA-C Unavailable Sebastien Cho MD [...] Expiration Date Visits Re quested Visits Authorized [id number] Closed 10/31/2019 12/30/2019 1 1 * MRI/CAT Scan - Closed Specialty Diagnoses / Procedures Referred By Contac t Referred To Contact Radiology Diagnoses Generalized abdominal pain Abnormal weight loss Abnormal screening computed tomography (CT) of lung Procedures CT Abdomen/Pelvis CT Abdomen/Pelvis Lian Godwin PA Phone: tel: fax: Referral ID Status Reason Start Date Expiration Date Visits Re quested Visits Authorized [id number] Closed 10/27/2019 12/26/2019 1 1 Encounter Details Date Type Department Care Team (Late st Contact Info) Description 11/02/2019 Ancillary Orders Virtual Department [address] [place] [address] Lian Godwin PA 10 [place] [address] Generalized abdominal pain; Abnormal weight loss; Abnormal [...] 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 Not on file Not on file documented as of this encounter Plan of Treatment Upcoming Encounters Date Type Department Care Team (Latest Contact Info) Description 09/18/2025 Procedure Pass [facility] Endoscopy Admitting Dept Virtual Department [address] [place] [address] 09/18/2025 11:00 AM EST Hospital Encounter [facility] Endoscopy Admitting Dept Virtual Department [address] [place] [address] Geo Dumont MD [address] [address] [email or web address] 09/18/2025 11:00 AM EST - 09/18/2025 11:30 AM EST Surgery [facility] Endoscopy Admitting Dept Virtual Department 30 [place] [address] Geo Dumont MD [address] [address] [email or web address] ESOPHAGOGASTRODUODENOSCOPY 11/13/2025 8:45 AM EST Office Visit [facility] 10 [place] [address] Unknown, Unknown, Elodia Cooper, HOT MAN [address] [address] [email or web address] 01/29/2026 8:00 AM EDT Office Visit [address] [place] [address] German Apple, HOT MAN 22 [facility], [address] [place] [address] [email or web address] Scheduled Procedures Name Priority Associated [...] 11/01/2018 and renal ultrasound dated 03/11/2017. FINDINGS: CANDLES POURER VIEW FINDINGS, LINES AND TUBES: None. TRACHEA [...] dated 11/01/2018 andrenal ultrasound dated 03/11/2017. FINDINGS: CANDLES POURER VIEW FINDINGS, LINES AND TUBES: None. TRACHEA [...] 11/01/2018 and renal ultrasound dated 03/11/2017. FINDINGS: CANDLES POURER VIEW FINDINGS, LINES AND TUBES: None. TRACHEA [...] dated 11/01/2018 andrenal ultrasound dated 03/11/2017. FINDINGS: CANDLES POURER VIEW FINDINGS, LINES AND TUBES: None. TRACHEA [...] documented as of this encounter Care Teams Global Lead Relationship Specialty Start Date End Date German Apple CNP [address] [facility], [address] [place] [address] PCP - General Family Medicine 10/17/19 German Apple CNP [address] [place] [address], [address] [place] [address] Historical LMR Provider 07/29/1712/22 Goran Guillen MD [address] [place] [address], [address] [place] [address] Insurance Assigned Provider Internal Medicine 04/04/19 Pretty Hernandez PA-C [address] [place] [address] Orthopedics & Sports Medicine, [place] [address] Physician Supervisor Webbing 01/05/24 01/08/25 Sebastien Cho MD [address] [place] [address] [place] [address] Ophthalmology 01/05/24 documented as of this encounter Additional Source Comments The information contained in this document represents components of the legal health record. It is not the complete legal health record.[facility]
[2025-08-22 07:15] VITALS: BP 138/78; PULSE 62; RESP 15; TEMP 36.1; O2SAT 98; BMI 22.2
== END 2025-08-22 06:51 | disposition home or self-care (01) ==
LOC: HO.MS 06:50
PROVIDERS: Visit Provider Ophthalmology
PROC: (CPT 66761; principal; 2025-08-22 07:30)
DX: H40.031 Anatomical narrow angle, right eye (principal)
CPT/HCPCS: 66761